=== PATIENT | male | born 1980 | race Caucasian/White ===

== ENCOUNTER 2023-11-12 15:52 | Inpatient (IN) | payer OTHER, SELFPAY ==
--- NOTE | 2023-11-12 | ECG_ITS ---
Test Reason : DETOX Blood Pressure : / mmHG Vent. Rate : 083 BPM Atrial Rate : 083 BPM P-R Int : 138 ms QRS Dur : 078 ms QT Int : 368 ms P-R-T Axes : 000 005 023 degrees QTc Int : 432 ms Normal sinus rhythm Normal ECG No previous ECGs available Referred By: Generic ED Physician Electronically Signed By:DWAYNE AGUILA
--- NOTE | ~2023-11-12 | XR_ITS ---
EXAMINATION: XR LUMBOSACRAL SPINE CLINICAL INFORMATION: Back pain COMPARISON: None available. TECHNIQUE: Three views of the lumbosacral spine. FINDINGS: No acute abnormalities. At L1-L2, there is chronic loss of the disc height. There is chronic anterior wedge deformity of the L1 vertebral body resulting in approximately 30% anterior height loss. No acute compression fractures. No evidence of pars interarticularis defects. The disc spaces are well-preserved at L2-L3, L3-L4, L4-5 and L5-S1. The vertebral body alignment is maintained. Sacrum and sacroiliac joints are unremarkable. XR/XR lumbar spine 2-3V IMPRESSION: * No acute radiographic abnormalities in the lumbar spine. * There is an old anterior wedge compression deformity of the L1 vertebral body and there is chronic loss of height of the L1-L2 disc space.
[2023-11-12 16:07] VITALS: BP 118/73; PULSE 89; RESP 16; TEMP 36.6; O2SAT 93
[2023-11-12 16:11] VITALS: BP 132/84; PULSE 96; O2SAT 98; BMI 36.6
--- NOTE | 2023-11-12 16:12 | ED.GENADULT ---
HPI - General Adult General Chief complaint: ETOH/Substance Use Stated complaint: detox request Time Seen by Provider: 11/12/23 16:10 Source: patient and EMS Mode of arrival: EMS Limitations: no limitations History of Present Illness HPI narrative: Patient is a 43 year old assigned male at with a history of opiate use and alcohol use presenting to the emergency department today with suicidal ideation. Patient states that he has been feeling more depressed lately, has not had his suboxone for 6 days, and he has recently been using cocaine/PCP and drinking. Patient denies any dizziness, lightheadedness, abdominal pain, nausea, vomiting, fever, chills, blurry vision, double vision, loss of vision, chest pain, difficulty breathing, shortness of breath, back pain, night sweats, pain with urination, increased urinary frequency, increased urinary urgency, blood in his urine or stool, syncope or a near syncopal episode, recent trauma or falls, bowel incontinence, bladder incontinence, bowel retention, bladder retention, or any other complaints at this time. Relieving factors: none Exacerbating factors: none Associated symptoms: denies other symptoms Treatments prior to arrival: none Related Data Allergies Allergy/AdvReac Type Severity Reaction Status Date / Time amoxicillin Allergy Rash Verified 11/12/23 16:14 codeine Allergy Rash Verified 11/12/23 16:14 seafood Allergy Anaphylaxis Verified 11/12/23 16:14 Review of Systems Constitutional: Constitutional: Reports no additional constitutional complaints, Denies chills, Denies fever(s) and Denies night sweats Eyes: Eyes: Reports no additional eye complaints, Denies blurry vision, Denies change in vision, Denies diplopia, Denies eye discharge, Denies loss of vision and Denies eye pain ENT: Denies dizziness Cardiovascular: Cardiovascular: Reports no additional cardiovascular complaints, Denies chest pain, Denies lightheadedness, Denies Loss of Consciousness and Denies dyspnea Respiratory: Respiratory: Reports no additional respiratory complaints and Denies dyspnea Gastrointestinal: Gastrointestinal: Reports no additional gastrointestinal complaints, Denies abdominal pain, Denies melena, Denies hematochezia, Denies change in bowel habits and Denies change in stool character Genitourinary: Genitourinary: Reports no additional male genitourinary complaints, Denies hematuria, Denies oliguria, Denies difficulty urinating, Denies dysuria, Denies urinary frequency, Denies urinary hesitancy, Denies urinary incontinence and Denies urinary urgency Musculoskeletal: Musculoskeletal: Reports no additional musculoskeletal complaints, Denies numbness and Denies tingling Neurologic: Denies dizziness, Denies loss of vision, Denies numbness and Denies tingling Psychiatric: Psychiatric: Reports depression, Denies homicidal ideation and Reports suicidal ideation Endocrine: Endocrine: Reports no additional endocrine complaints Hematologic/Lymphatic: Hematologic/Lymphatic: Reports no additional hematologic/lymphatic complaints Allergic/Immunologic: Allergic/Immunologic: Reports no additional allergic/immunologic complaints [facility] Past Medical History Attestation statement: The following information was validated with the patient. Source: old records reviewed and nursing notes reviewed Social History Social History Unable to assess alcohol history related to: Refusing to respond Smoked in Last 30 Days: Yes Use of substances other than those prescribed or required for medical reasons: Refusing to respond Advance Directives: No Advance Directives Information Provided: No Do you have a plan to hurt others: No Plan Physical Exam ED Vital Signs: Vital Signs - 24 hr 11/12/23 16:07 Temperature 97.9 F Pulse Rate 89 Respiratory Rate 16 Blood Pressure 118/73 Pulse Oximetry 93 Oxygen Delivery Method Room Air BMI result Body Mass Index 36.6 Const General: cooperative, no acute distress, alert and awake Nutritional Appearance: well nourished Orientation/consciousness: patient oriented x3 Limitations: no limitations HENMT Head: Yes normal to inspection and Yes atraumatic Ears: hearing grossly normal bilaterally and external ears normal General nose exam: Normal external nose present, no nasal discharge noted and no epistaxis Face and sinus: Yes normal facial exam, No abrasion and No laceration Mouth: Normal oral and palatal mucosa present, no drooling and no muffled voice Eyes General: appearance normal, both eyes and all related structures Periorbital: periorbital findings normal Eyelids: Yes eyelids normal Conjunctivae: conjunctivae normal Pupils: Equal, round and reactive pupils present EOM: EOMs intact bilaterally Neck Neck: Yes normal visual inspection, Yes full ROM and Yes no lymphadenopathy Chest Chest palpation & inspection: normal inspection of the chest Resp Effort & Inspection: normal respiratory effort and able to speak in complete sentences GI Inspection: Yes normal to inspection Neuro General: patient oriented x3 and moves all extremities Cranial nerves: Yes Equal, round and reactive pupils present Cognition (Neuro): normal cognition Motor exam (neuro): 5/5 motor strength present throughout Sensory Exam: Normal double simultaneous stimulation for sensation Coordination: [id number] test normal Extrem General: Yes normal to inspection, Yes full ROM and Yes capillary refill normal Psych Appearance: grossly normal Mental Status: mental status grossly normal Affect: normal affect Attitude: cooperative Thought process: Normal thought process present Thought content: Normal thought content present Insight: Good insight present (Psych) Medical Decision Making Medical Decision Making MDM Narrative: Patient is a 43 year old assigned male at with a history of opiate use and alcohol use presenting to the emergency department today with suicidal ideation Patient's physical exam was as noted in the physical exam portion of this note. Patient's blood work was unremarkable. Patient's urine showed no acute process. Patient was positive for buprenorphine, fentanyl, barbiturates, PCP, benzos, cocaine, and THC. Patient was evaluated by the CARE team who recommended inpatient bed search. I explained my physical exam findings as well as all test results to the patient. I answered all questions asked by the patient. Patient verbalized agreement and understanding with this treatment plan and remaining an inpatient bed search. Physician observation began at 1628. Differential Diagnosis Differential Diagnoses: The differential diagnosis associated with the presentation includes Substance abuse Substance use Suicidal ideation Admission/Observation Consideration of admission/observation: Escalation of care including admission/observation considered Patient is an inpatient psychiatric bed search. Consult Healthcare Provider Management of the patient was discussed with: Behavioral Health Provider (spoke to the CARE team as noted in the MDM Rationale portion of this note.) Lab Data [facility] Lab Attestation statement: I reviewed the patient's lab results. My interpretation of these results are in the MDM Rationale portion of this note. 11/12/23 16:27 11/12/23 16:27 Labs: Lab Results 11/12/23 11/12/23 11/12/23 Range/Units 16:27 20:58 20:59 WBC 7.0 (4.8-10.8) X10*3/uL RBC 4.53 L (4.60-5.80) X10*6/uL Hgb 13.4 L (14.0-18.0) g/dl Hct 38.3 L (42.0-52.0) % MCV 84.5 (80.0-98.0) fL MCH 29.6 (27.0-33.0) pg MCHC 35.0 (31.0-36.0) g/dl RDW 13.4 (11.0-16.0) % Plt Count 245 (160-400) X10*3/uL MPV 10.5 (9.4-12.4) fL Immature Gran % (Auto) 0.1 (0.0-0.4) % Neut % (Auto) 55.9 (45-73) % Lymph % (Auto) 34.2 (20-40) % [place] % (Auto) 8.8 (2-11) % Eos % (Auto) 0.6 (0-4) % Baso % (Auto) 0.4 (0-2) % Lymph # (Auto) 2.4 (1.2-4.9) X10*3/uL [place] # (Auto) 0.6 (0.1-1.2) X10*3/uL Eos # (Auto) 0.0 (0.0-0.4) X10*3/uL Baso # (Auto) 0.0 (0.0-0.2) X10*3/uL Abs Immat Gran (auto) 0.01 (0.00-0.03) X10*3/uL Absolute Neuts (auto) 3.9 (2.0-8.3) x10*3/uL Absolute Nucleated RBC 0.000 (0.0-0.012) X10*3/uL Nucleated RBC % (auto) 0.0 (0.0-0.2) /100WBC Sodium 140 (135-145) mmol/L Potassium 3.4 (3.3-5.1) mmol/L Chloride 107 (96-108) mmol/L Carbon Dioxide 20 L (22-29) mmol/L Anion Gap 16 (12-20) BUN 25 H (9-16) mg/dL Creatinine 0.92 (0.5-1.4) mg/dL Estim Creat Clear Calc 134.4 Estimated GFR > 60 Random Glucose 89 (60-115) mg/dL Calcium 9.8 (8.4-10.2) mg/dL Total Bilirubin 0.6 (0.0-1.0) mg/dL AST 32 (5-37) U/L ALT 25 (0-40) U/L Alkaline Phosphatase 83 (39-117) U/L Troponin I High Sens < 2.7 (<3.5-35.0) ng/L Total Protein 7.9 (6.5-8.0) g/dL Albumin 4.6 (3.5-5.0) g/dL Urine Color Dark Yellow Urine Appearance Clear Urine pH 6.0 (5.0-9.0) Ur Specific [place] >= 1.030 H (1.005-1.025) Urine Protein 30 (1+) H (Neg-Trace) mg/dL Urine Glucose (UA) Negative (Negative) mg/dL Urine Ketones 40 (Negative) mg/dL Urine Blood Negative (Negative) Urine Nitrite Negative (Negative) Ur Leukocyte Esterase Negative (Negative) Urine RBC 0-2 (0-2) /HPF Urine WBC 0-5 (0-5) /HPF Ur Squamous Epith Cells 0-2 (0-2) /HPF Urine Bacteria None Seen (None Seen) Hyaline Casts 0-2 (0-2) /LPF Salicylates < 5.0 L (15-30) mg/dL Urine Opiates Screen Not Detected (Not Detect) Ur Buprenorphine Scrn Positive H (Not Detect) ng/mL Ur Oxycodone Screen Not Detected (Not Detect) ng/mL Urine Methadone Screen Not Detected (Not Detect) ng/mL Urine Fentanyl Screen POSITIVE H (Not Detect) Acetaminophen < 3 (<30) mcg/mL Ur Barbiturates Screen POSITIVE H (Not Detect) Ur Phencyclidine Scrn POSITIVE H (Not Detect) Ur Amphetamines Screen Not Detected (Not Detect) U Benzodiazepines Scrn POSITIVE H (Not Detect) Urine Cocaine Screen POSITIVE H (Not Detect) U Marijuana (THC) Screen POSITIVE H (Not Detect) Ethyl Alcohol < 10 mg/dL Independent Historian Clinical information obtained from an independent historian. History obtained from or confirmed by: EMS (EMS provided additional history and confirmed the history provided by the patient.) Critical Care Time Critical Care Time Critical Care Time: Yes Total Critical Care Time: 131 Attestation: I spent 131 minutes of Critical Care Time with this patient. This does not include time spent on separately reported billable procedures. Discharge Plan Discharge Clinical Impression: Polysubstance abuse, Suicidal ideation Patient Disposition: Still a Patient Print Language: Citizen Of [place]
[2023-11-12 16:31] LABS: MANUAL DIFF FLAG NO
[2023-11-12 16:34] LABS: Basophils Percent Auto 0.4 % (0-2); Eosinophils Percent Auto 0.6 % (0-4); Hematocrit 38.3 % (42.0-52.0); Hemoglobin 13.4 g/dl (14.0-18.0); Imm Gran Abs Auto 0.01 X10*3/uL (0.00-0.03); Imm Gran Pct Auto 0.1 % (0.0-0.4); Lymphocytes Absolute Auto 2.4 X10*3/uL (1.2-4.9); Lymphocytes Percent Auto 34.2 % (20-40); Mean Corpuscular Hemoglobin 29.6 pg (27.0-33.0); Mean Corpuscular Volume 84.5 fL (80.0-98.0); Mean Platelet Volume 10.5 fL (9.4-12.4); Monocytes Absolute Auto 0.6 X10*3/uL (0.1-1.2); Monocytes Percent Auto 8.8 % (2-11); Neutrophils Absolute Auto 3.9 x10*3/uL (2.0-8.3); Neutrophils Percent Auto 55.9 % (45-73); Platelet Count 245 X10*3/uL (160-400); Red Blood Count 4.53 X10*6/uL (4.60-5.80); Red Cell Distribution Width 13.4 % (11.0-16.0)
[2023-11-12 17:48] LABS: Alanine Aminotransferase 25 U/L (0-40); Albumin Level 4.6 g/dL (3.5-5.0); Alkaline Phosphatase 83 U/L (39-117); Anion Gap 16 (12-20); Aspartate Amino Transferase 32 U/L (5-37); Bilirubin Total 0.6 mg/dL (0.0-1.0); Blood Urea Nitrogen 25 mg/dL (9-16); Calcium 9.8 mg/dL (8.4-10.2); Carbon Dioxide 20 mmol/L (22-29); Chloride 107 mmol/L (96-108); Creatinine Clr Calc Pharmacy 134.4; Estimated Glomerular Filt Rate > 60; Glucose Random 89 mg/dL (60-115); Potassium 3.4 mmol/L (3.3-5.1); Sodium 140 mmol/L (135-145); Total Protein 7.9 g/dL (6.5-8.0)
[2023-11-12 17:50] LABS: Acetaminophen LAB < 3 mcg/mL (<30); Salicylate < 5.0 mg/dL (15-30)
[2023-11-12 17:58] LABS: Troponin-I High Sensitivity < 2.7 ng/L (<3.5-35.0)
[2023-11-12 19:55] LABS: Ethanol < 10 mg/dL
[2023-11-12 21:12] LABS: Appearance Urine Clear; Color Urine Dark Yellow; Glucose Urine UA Negative (Negative); Leukocyte Esterase Urine Negative (Negative); Nitrite Urine Negative (Negative); Specific Gravity - Urine >= 1.030 (1.005-1.025); UMIC TRIGGER UACC YES; Urine Blood Negative (Negative); Urine Ketones 40 mg/dL (Negative); Urine Protein 30 (1+) mg/dL (Neg-Trace)
[2023-11-12 21:14] LABS: Bacteria Urine None Seen (None Seen); Hyaline Casts Urine 0-2 /LPF (0-2); RBC Urine 0-2 /HPF (0-2); Squamous Epithelial Cell Urine 0-2 /HPF (0-2); WBC Urine 0-5 /HPF (0-5)
[2023-11-12 21:20] LABS: Amphetamine Screen Urine Not Detected (Not Detect); Barbiturates, Urine POSITIVE (Not Detect); Benzodiazepines Screen Urine POSITIVE (Not Detect); Buprenorphine Scr Positive (Not Detect); Cannabinoid Screen Urine POSITIVE (Not Detect); Cocaine Screen Urine POSITIVE (Not Detect); Fentanyl, urine POSITIVE (Not Detect); Methadone Screen, Urine Not Detected (Not Detect); Opiate Screen Urine Not Detected (Not Detect); Oxycodone Screen Urine Not Detected (Not Detect); Phencyclidine Screen Urine POSITIVE (Not Detect)
--- NOTE | 2023-11-13 06:26 | PC.NURSE ---
Patient slept through the night, no distress observed/reported, disposition per care team is section-12 inpatient bed search. med rec completed/currently not on any home medication, asymptomatic ETOH withdrawal at this time, no behavior issues, VSS, will continue to monitor
[2023-11-13 06:35] VITALS: BP 123/79; PULSE 58; RESP 17; TEMP 36.4; O2SAT 98
--- NOTE | 2023-11-13 07:02 | PC.NURSE ---
Assumed care of patient at 0645, patient awake sitting up in bed, offering no complaints to this RN. Patient requesting suboxone. Patient reports that he was discharged from [facility] 2 weeks ago, was supposed to get his medications refilled at [facility] or [facility] (per patient). He has not been able to get those medications refilled so he has been without medications for 2 weeks. Patient is otherwise in no apparent distress. Continue plan of care for inpt bedsearch
--- NOTE | 2023-11-13 08:47 | PC.NURSE ---
This RN found 2 pill bottles in patient belongings that are his daily medications. Entered in med rec. Attempted to verify suboxone dose with [facility] however, staff unsure of how to access old records so this RN was unable to verify. Jayde Jordan, molded frames assembler contacted regarding suboxone
[2023-11-13] MEDS: levETIRAcetam 500 MG TABLET PO ×2 (09:11→20:55)
[2023-11-13] MEDS: clonazePAM 1 MG TABLET PO ×2 (09:11→20:55)
--- NOTE | 2023-11-13 10:05 | MHC.RECOVRN ---
T/W received request from ER nurse Ondina Alcantara asking for assistance with suboxone verification. mass pat pulled and given to Ondina. Upon reveiw of Tox screen Precipitated W/D reviewed with nurse along with recommendations to treat with comfort meds until appropriate to re start suboxone. ACS available PRN.
--- NOTE | 2023-11-13 10:08 | PC.NURSE ---
Per Noe, patient received suboxone 20mg on 10/18 with a 30 day quanitity. patient has not taken it since being discharged from [facility]. Patient did test positive for Fentanyl, to avoid precipitated withdrawal, Suboxone should be held for at least 72 hours after testing positive or until the patient no longer tests positive for it.
[2023-11-13 13:42] VITALS: PULSE 45
[2023-11-13 13:50] VITALS: BP 120/79; PULSE 45; RESP 18; TEMP 36.9; O2SAT 97
--- NOTE | 2023-11-13 13:52 | PC.NURSE ---
Patient reporting withdrawal symptoms, CIWA and COWS both scored 6. [employer] aware. Patient's vital signs also reported to MD as heart rate was 45. No new orders at this time
[2023-11-13] MEDS: hydrOXYzine HCL 50 MG TABLET PO (14:46)
[2023-11-13] MEDS: Ibuprofen 600 MG TABLET PO (14:46)
[2023-11-13 20:07] VITALS: BP 114/60; PULSE 57; RESP 17; TEMP 36.6; O2SAT 98
[2023-11-13] MEDS: Gabapentin 400 MG CAPSULE 800 MG PO (21:09)
[2023-11-13] MEDS: Buprenorphine/Naloxone 8/2 mg FILM 1 FILM BUCCAL (21:09)
[2023-11-13 22:12] VITALS: BP 103/72; PULSE 66; RESP 18; TEMP 36.6; O2SAT 97
[2023-11-14 06:42] VITALS: BP 105/67; PULSE 56; RESP 17; TEMP 36.6; O2SAT 96
--- NOTE | 2023-11-14 06:56 | PC.NURSE ---
Patient slept through the night, no distress observed/reported, no behavior issues, deposition per care team is section-12 inpatient bed search, medication compliant, VSS, will continue to monitor
--- NOTE | 2023-11-14 07:59 | PC.NURSE ---
Assumed care of patient at 0645, patient sleeping on bed in BH 4, respirations even and unlabored, no apparent distress. Continue plan of care for inpatient bedsearch
[2023-11-14] MEDS: clonazePAM 1 MG TABLET PO ×3 (08:09→20:27)
[2023-11-14] MEDS: levETIRAcetam 500 MG TABLET PO ×2 (08:09→20:27)
[2023-11-14] MEDS: Gabapentin 400 MG CAPSULE 800 MG PO ×3 (08:09→20:27)
[2023-11-14] MEDS: Buprenorphine/Naloxone 8/2 mg FILM 1 FILM BUCCAL ×3 (08:09→20:27)
[2023-11-14 16:01] VITALS: BP 113/74; PULSE 59; RESP 18; TEMP 36.5; O2SAT 98
[2023-11-14 16:04] VITALS: PULSE 59
--- NOTE | 2023-11-14 19:17 | PC.NURSE ---
patient appears to remain at rest at present respirations are even and unlabored, resting in room. patient appears in no distress.
[2023-11-15 03:18] VITALS: BP 103/71; PULSE 64; RESP 17; TEMP 36.6; O2SAT 93
--- NOTE | 2023-11-15 07:29 | PC.NURSE ---
Assumed care of patient at 0645, patient appears to be sleeping, respirations even and unlabored, no apparent distress noted at this time. Patient remains S12 inpatient bedsearch
[2023-11-15] MEDS: clonazePAM 1 MG TABLET PO ×3 (08:00→20:22)
[2023-11-15] MEDS: Buprenorphine/Naloxone 8/2 mg FILM 1 FILM BUCCAL ×3 (08:00→20:22)
[2023-11-15] MEDS: levETIRAcetam 500 MG TABLET PO ×2 (08:00→20:22)
[2023-11-15] MEDS: Gabapentin 400 MG CAPSULE 800 MG PO ×3 (08:00→20:21)
[2023-11-15 09:20] VITALS: BP 119/64; PULSE 60; RESP 16; TEMP 36.9; O2SAT 95
[2023-11-15] MEDS: OLANZapine 5 MG TABLET PO (13:27)
[2023-11-15 15:00] VITALS: BP 136/82; PULSE 88; RESP 16; TEMP 36.6; O2SAT 96
[2023-11-15] MEDS: chlordiazePOXIDE HCl 25 MG CAPSULE PO ×2 (16:26→20:22)
--- NOTE | 2023-11-15 18:03 | PC.ADMIT ---
Chauncey Lucio , he/him pronouns arrived via wheelchair from [facility]. He is being admitted for bipolar II disorder and substance use disorder. He is here on a 12A. Dr Kraft was notified of his arrival on the unit. He was cooperative with safety/skin check. Naveed is an undomiciled male who presented to the ED secondary to suicidal ideation with a plan to overdose. Naveed reported using cocaine and PCP early in the date of admission along with drinking 2 pints of alcohol. I drink the tall boy beers and add a shot or 2 to it . He is originally from [place]. He previously spent 6 weeks at [facility], he then headed to a [facility] facility on [address] , upon his arrival he was confronted for smoking and decided then to leave the program. He has been living on the street for 2 weeks since. He has been without his medications and his suboxone for that time as well. He has been using illicit substances and alcohol daily since. He endorses significant anxiety and depression. He said a previous suicide attempt in 2018 was related to the of his mom. I just couldnt get away from the sadness . In 2019, his of 5 years was murdered in [place] , I am the one that found her, she had been stabbed , he has one child who is 7, but lives with his wifes family as his family has either or estranged from him. I have been living wild and dangerous , he desires help to get his mental health and substances use disorder under control. He reports feeling safe here and denies urges to harm self or others. He has a few medical problems as well. He has a seizure disorder since 2013 I used to shoot coke all the time , he has asthma, and osteomylitis of the spine. He reports he has had etoh withdrawal seizures in the past. Currently, when the ciwa was assessed by this typewriter assembly and parts inspector, he scored a 15. Dr Kraft aware. Orders received and followed. He is a half pack a day smoker and or vape user. He is requesting NRT during hospitalization. He is on 15 minute safety checks. He met with Dr Kraft and signed the CV which was accepted by
[2023-11-15 20:00] VITALS: BP 131/73; PULSE 55; RESP 16; TEMP 36.5; O2SAT 98
[2023-11-15] MEDS: traZODone HCL 50 MG TABLET PO (20:22)
[2023-11-16] MEDS: hydrOXYzine HCL 25 MG TABLET PO (06:39)
[2023-11-16 08:20] VITALS: BP 124/67; PULSE 61; RESP 16; TEMP 36.8; O2SAT 95
[2023-11-16] MEDS: Thiamine HCL 100 MG TABLET PO (08:31)
[2023-11-16] MEDS: Gabapentin 400 MG CAPSULE 800 MG PO ×3 (08:31→21:46)
[2023-11-16] MEDS: chlordiazePOXIDE HCl 25 MG CAPSULE PO ×4 (08:31→21:47)
[2023-11-16] MEDS: Folic Acid 1 MG TABLET PO (08:31)
[2023-11-16] MEDS: clonazePAM 1 MG TABLET PO ×3 (08:32→21:48)
[2023-11-16] MEDS: levETIRAcetam 500 MG TABLET PO ×2 (08:32→21:47)
[2023-11-16] MEDS: Buprenorphine/Naloxone 8/2 mg FILM 1 FILM BUCCAL ×3 (08:51→21:51)
[2023-11-16] MEDS: Nicotine Polacrilex 2 MG GUM 4 MG BUCCAL (09:26)
--- NOTE | 2023-11-16 09:38 | HO.PSYADMNOT ---
HPI Date of Service: 11/16/23 Chief Complaint: depressed/SI Sources of Information: patient interviewed, chart reviewed and crisis/core team assessment reviewed HPI Subjective Notes: Graham Warning and Conditional Voluntary Narrative: Patient is a 43-year-old male with history of epilepsy, PTSD, depression alcohol and cocaine abuse, who presents for depression and SI in the face of being off his medications for a week and a half and relapsing on alcohol and cocaine. Patient reports long history of depression which significantly worsened after he found his murdered 4 years ago. Since then his PTSD symptoms became unrelenting and depression worsened. Patient continue the struggled with alcohol and cocaine dependence. For the past few months he has either been at a program and more recently discharged from [facility] psych unit where some of his medications were changed. He went to a partial day program and afterwards was sent to a TSS in [facility]; upon arrival patient felt very uncomfortable, did not know the area at all, was not allowed to smoke at the program and had his SSI check coming in which was a trigger for relapse and patient left the program. For the past week and a half he was drinking heavily and using cocaine heavily and for the 1st time tried PCP. His depression worsened and he started having suicidal thoughts, planning to overdose. He said he can still hear his whispering to him that he can do it and to stay safe. Patient reports that over the past year his depression has significantly worried and is now accompanied by SI, sometimes even with plans. He denies AVH; denies any history of manic type episodes; no paranoid or delusional thinking present. Past Psychiatric History: History of 2 prior psychiatric admissions 1st in 2017 2018 suicide attempt Medication trials: Seroquel 200 mg b.i.d., thinks maybe it helped Zyprexa 7.5 mg t.i.d. thinks maybe it helped Effexor Prozac Medical Evaluation Reviewed: Yes [facility] Medical History (Updated 11/16/23 @ 18:03 by Humble Kraft MD) Cocaine use disorder Alcohol withdrawal Alcohol use disorder PTSD (post-traumatic stress disorder) MDD (major depressive disorder), recurrent severe, without psychosis Family History: Father: Alcoholism Social History: Homeless murdered 4 in 2019 Both mother and father Patient estranged from his brothers and sisters Patient estranged from his 7 children Substance History: cocaine; PCP hx alcohol w/drawal seizures, usually detoxed on Phenobarb, but sometimes Librium Trauma History: Childhood trauma Adult trauma including finding his murdered Diagnostics Vital Signs (24Hr): Vital Signs - 24 hr 11/15/23 15:00 11/15/23 20:00 Temperature 97.8 F 97.7 F Pulse Rate 88 55 Respiratory Rate 16 16 Blood Pressure 136/82 131/73 Pulse Oximetry 96 98 Oxygen Delivery Method Room Air Room Air BMI result Body Mass Index 36.6 Labs 11/12/23 16:27 11/12/23 16:27 Meds/Allergies Meds Home Medications ?Medication ?Instructions ?Recorded ?Confirmed ?Type buprenorphine 8 mg-naloxone 2 mg 2.5 film buccal DAILY 11/13/23 11/16/23 History sublingual film (Suboxone) gabapentin 800 mg tablet 800 mg PO TID 11/13/23 11/13/23 History levetiracetam 500 mg tablet 500 mg PO BID 11/13/23 11/13/23 History (Keppra) albuterol 90 mcg/actuation aerosol See Rx Instructions .Route 11/16/23 History inhaler .COMPLEX PRN wheezing buspirone 10 mg tablet 10 mg PO TID 11/16/23 11/16/23 History olanzapine 7.5 mg tablet 7.5 mg PO 3XD PRN Anxiety 11/16/23 11/16/23 History prazosin 2 mg capsule 2 mg PO BEDTIME 11/16/23 11/16/23 History propranolol 20 mg tablet 20 mg PO TID 11/16/23 11/16/23 History sertraline 50 mg tablet 50 mg PO DAILY 11/16/23 11/16/23 History trazodone 150 mg tablet 150 mg PO BEDTIME 11/16/23 11/16/23 History Allergies Allergies Allergy/AdvReac Type Severity Reaction Status Date / Time amoxicillin Allergy Rash Verified 11/12/23 16:14 codeine Allergy Rash Verified 11/12/23 16:14 seafood Allergy Anaphylaxis Verified 11/12/23 16:14 Mental Status Exam Mental Status Exam Narrative: Pt is alert and oriented; behavior is cooperative, friendly and calm; patient is not in distress; dressed in hospital attire, unkempt long hair and scraggly moses; marginal hygiene; mood is described as depressed and affect congruent, downcast; eye contact appropriate; Speech is a little slowed, a little soft; normal prosody; psychomotor agitation present; thought process is organized and goal directed; Thought content is on hopelessness, images of his murdered , tx; otherwise pertinent to relevant topics and without any delusional content, paranoid ideations or grandiosity; denies any SI/HI. There is no evidence of perceptual disturbance and denies AVH. Patients insight and judgment impaired Assessment & Plan Assessment & Plan (1) MDD (major depressive disorder), recurrent severe, without psychosis: Status: Acute Code(s): F33.2 - Major depressive disorder, recurrent severe without psychotic features (2) PTSD (post-traumatic stress disorder): Status: Acute Code(s): F43.10 - Post-traumatic stress disorder, unspecified (3) Alcohol withdrawal: Status: Acute Code(s): F10.939 - Alcohol use, unspecified with withdrawal, unspecified (4) Alcohol use disorder: Status: Acute Code(s): F10.90 - Alcohol use, unspecified, uncomplicated (5) Cocaine use disorder: Status: Acute Code(s): F14.10 - Cocaine abuse, uncomplicated Plan Patient is a 43-year-old male with history of epilepsy, PTSD, depression alcohol and cocaine abuse, who presents for depression and SI in the face of being off his medications for a week and a half and relapsing on alcohol and cocaine. Patient reports long history of depression which significantly worsened after he found his murdered 4 years ago. Since then his PTSD symptoms became unrelenting and depression worsened. Patient continue the struggled with alcohol and cocaine dependence. For the past few months he has either been at a program and more recently discharged from [facility] psych unit where some of his medications were changed. He went to a partial day program and afterwards was sent to a TSS in [facility]; upon arrival patient felt very uncomfortable, did not know the area at all, was not allowed to smoke at the program and had his SSI check coming in which was a trigger for relapse and patient left the program. For the past week and a half he was drinking heavily and using cocaine heavily and for the 1st time tried PCP. His depression worsened and he started having suicidal thoughts, planning to overdose. He said he can still hear his whispering to him that he can do it and to stay safe. Patient reports that over the past year his depression has significantly worried and is now accompanied by SI, sometimes even with plans. He denies AVH; denies any history of manic type episodes; no paranoid or delusional thinking present. Formulation/plan: -Patient with severe depression and PTSD symptoms, complicated by ongoing polysubstance abuse; currently withdrawing from alcohol. Patient is normally detoxed on a phenobarbital taper and has history of withdrawal seizures, with epilepsy diagnosis so will aggressively treat withdrawal with scheduled Librium and CIWA/p.r.n. Librium. -regarding medication, due to history of substance abuse it has a little difficult to determine exactly what medications have been helpful; he thinks that Seroquel 200 mg b.i.d. was helpful at 1 point and does not know why he was taken off of it; he also said that olanzapine scheduled seem to be helpful and was not sure why last hospitalization changed to a p.r.n.. That said, these were also seemingly helpful while he was also getting sober. Will continue to consider. Plan: CV Q 15 minute checks Librium scheduled with p.r.n.; will taper off Continue clonazepam 1 mg b.i.d.; started at last psychiatric hospitalization Continue gabapentin 800 mg t.i.d.; has been on for 10 years for both epilepsy and neuropathic pain Keppra 500 mg b.i.d.; on for 10 years for epilepsy Patient educated on: diagnosis, medication risk/benefits, substance abuse and medical condition Informed Consent: understands Reason for continued inpatient stay Substantial Risk for: harm to self and rapid decompensation Statement Statement: I have reviewed the history and physical and performed a pertinent examination on my patient. No changes have occurred unless specified. If the History and Physical was not performed prior to admission, the Hospitalist's service will be consulted for completing the admission physical. Time Spent With Patient Time: Total time managing care of this patient today ____ minutes.
[2023-11-16] MEDS: Nicotine 21 MG PATCH.TD24 TRANSDERMA (11:44)
[2023-11-16 15:03] VITALS: BP 147/88
[2023-11-16] MEDS: busPIRone HCl 10 MG TABLET PO ×2 (15:03→21:48)
[2023-11-16] MEDS: Propranolol HCL 20 MG TABLET PO ×2 (15:03→21:47)
[2023-11-16 20:00] VITALS: BP 136/74; PULSE 67; RESP 16; TEMP 36.7; O2SAT 94
[2023-11-16 21:47] VITALS: BP 136/74; PULSE 67
[2023-11-16] MEDS: traZODone HCL 100 MG TABLET 200 MG PO (21:47)
[2023-11-16] MEDS: Prazosin HCL 1 MG CAPSULE 2 MG PO (21:47)
[2023-11-17] MEDS: chlordiazePOXIDE HCl 25 MG CAPSULE 50 MG PO (06:26)
[2023-11-17 08:00] VITALS: BP 106/68; PULSE 60; RESP 18; O2SAT 95
[2023-11-17 08:46] VITALS: BP 106/68; PULSE 60
[2023-11-17] MEDS: Thiamine HCL 100 MG TABLET PO (08:46)
[2023-11-17] MEDS: Propranolol HCL 20 MG TABLET PO ×2 (08:46→21:43)
[2023-11-17] MEDS: Gabapentin 400 MG CAPSULE 800 MG PO ×3 (08:46→21:44)
[2023-11-17] MEDS: busPIRone HCl 10 MG TABLET PO ×3 (08:46→21:44)
[2023-11-17] MEDS: levETIRAcetam 500 MG TABLET PO ×2 (08:46→21:44)
[2023-11-17] MEDS: chlordiazePOXIDE HCl 25 MG CAPSULE PO ×4 (08:47→21:46)
[2023-11-17] MEDS: Folic Acid 1 MG TABLET PO (08:47)
[2023-11-17] MEDS: clonazePAM 1 MG TABLET PO ×2 (08:47→21:44)
[2023-11-17] MEDS: Buprenorphine/Naloxone 8/2 mg FILM 1 FILM BUCCAL ×3 (08:49→21:45)
[2023-11-17] MEDS: Nicotine 21 MG PATCH.TD24 TRANSDERMA (09:15)
[2023-11-17 13:33] VITALS: BP 118/58; PULSE 62; RESP 16; TEMP 36.2; O2SAT 98
[2023-11-17 14:04] VITALS: BP 118/58
--- NOTE | 2023-11-17 14:20 | MHC.RECOVRN ---
Met with pt on M5 after consult placed to Addiction Medicine for polysubstance use. Pt had presented to the ED verbalizing SI with plan to overdose. Upon evaluation, pt admitted for YU as well as PTSD and MDD. Pt awake, alert, easily engages in conversation. Pt reports being in and out of programs frequently, most recently had been accepted to [facility] however, when pt presented there he was told he could not smoke cigarettes and turned around and left. Pt has been using substances since, approx 3 weeks. Pt is from [place], was brought out here to go to [place]. Pt reports he has been using cocaine, INH, 14 grams daily x 3 weeks as well as PCP, INH, x 6 days. Pt reports he began using PCP for the first time, had not done it in the past. Pt reports he is in recovery from heroin/fentanyl x 9 months, utilizing Suboxone. Pt reports cravings for opioids is low. Pt reports, however, a couple days ago using Percocet. Pt did later discover it was a pressed fentanyl tablet. Pt reports if he had not come to [facility] he would overdose and out there. Pt is future oriented and goal is recovery. Pt would like to be be placed in a CSS from . Pt provided with written resources as well as t/w contact information if needed. Pt encouraged to speak with SW regarding referrals to CSS. Pt denies questions or concerns for t/w.
[2023-11-17] MEDS: Acetaminophen 325 MG TABLET 650 MG PO (17:05)
--- NOTE | 2023-11-17 17:46 | P.PNPSI_ITS ---
Subjective Subjective Date of Service: 11/17/23 Reason For Visit: depressed/SI Interim History: Met with patient; discussed with team Patient has been with detoxing without incident; he thinks that because this recent binge was only 1.5 weeks long his withdrawal is much more mild than usual. Will start to taper off Librium. Patient remains depressed, isolating and with downcast affect. Discussed medications again and patient agreed to restart Seroquel 200 mg b.i.d. since to his recollection this is what helped his mood the most. Patient also complaining of mid back pain where he had recent osteomyelitis infection and the pain feels similar. Mental Status Exam Mental Status Exam Narrative: Pt is alert and oriented; behavior is cooperative, friendly and calm; patient is not in distress; dressed in hospital attire, unkempt long hair and scraggly moses; marginal hygiene; mood is described as depressed and affect congruent, downcast; eye contact appropriate; Speech is a little slowed, a little soft; normal prosody; psychomotor agitation present; thought process is organized and goal directed; Thought content is on hopelessness, images of his murdered , tx; otherwise pertinent to relevant topics and without any delusional content, paranoid ideations or grandiosity; denies any SI/HI. There is no evidence of perceptual disturbance and denies AVH. Patients insight and judgment impaired Diagnostics Vital Signs (24Hr): Vital Signs - 24 hr 11/16/23 20:00 11/16/23 21:47 11/16/23 21:47 Temperature 98.0 F Pulse Rate 67 67 Respiratory Rate 16 Blood Pressure 136/74 136/74 136/74 Pulse Oximetry 94 Oxygen Delivery Method Room Air 11/17/23 08:00 11/17/23 08:46 11/17/23 13:33 Temperature 97.1 F Pulse Rate 60 60 62 Respiratory Rate 18 16 Blood Pressure 106/68 106/68 118/58 L Pulse Oximetry 95 98 Oxygen Delivery Method Room Air Room Air 11/17/23 14:04 Temperature Pulse Rate Respiratory Rate Blood Pressure 118/58 L Pulse Oximetry Oxygen Delivery Method BMI result Body Mass Index 36.6 Labs 11/12/23 16:27 11/12/23 16:27 Medications Medications Current Medications Acetaminophen (Acetaminophen 325 Mg Tablet) 650 mg PO Q6H PRN PRN Reason: Headache/Pain Mild Scale (1-3) Last Admin: 05/08/24 17:05 Dose: 650 mg Al Hydroxide/Mg Hydroxide (Magnesium Hydrox/Alum Hydrox 30 Ml Oral.Susp) 30 ml PO Q6H PRN PRN Reason: Heartburn/Nausea Albuterol Sulfate (Albuterol Sulfate 90 Mcg 8 Gm Inhaler) 4 puff INHALE Q2H PRN PRN Reason: Shortness of Breath Buprenorphine/Naloxone (Buprenorphine/Naloxone 8/2 Mg Film) 1 film BUCCAL TID [facility] Last Admin: 11/17/23 14:05 Dose: 1 film Buspirone HCl (Buspirone Hcl 10 Mg Tablet) 10 mg PO TID [facility] Last Admin: 11/17/23 14:05 Dose: 10 mg Chlordiazepoxide HCl (Chlordiazepoxide Hcl 25 Mg Capsule) 25 mg PO Q2H PRN PRN Reason: CIWA 7-10 Chlordiazepoxide HCl (Chlordiazepoxide Hcl 25 Mg Capsule) 50 mg PO Q2H PRN PRN Reason: CIWA 11 and above Last Admin: 11/17/23 06:26 Dose: 50 mg Chlordiazepoxide HCl (Chlordiazepoxide Hcl 25 Mg Capsule) 25 mg PO TID [facility] Clonazepam (Clonazepam 1 Mg Tablet) 1 mg PO BID [facility] Last Admin: 11/17/23 08:47 Dose: 1 mg Famotidine (Famotidine 20 Mg Tablet) 20 mg PO BID [facility] Famotidine (Famotidine 20 Mg Tablet) 20 mg PO ONCE ONE Stop: 11/17/23 17:45 Folic Acid (Folic Acid 1 Mg Tablet) 1 mg PO DAILY [facility] Last Admin: 11/17/23 08:47 Dose: 1 mg Gabapentin (Gabapentin 400 Mg Capsule) 800 mg PO TID [facility] Last Admin: 11/17/23 14:05 Dose: 800 mg Hydroxyzine HCl (Hydroxyzine Hcl 25 Mg Tablet) 25 mg PO Q6H PRN PRN Reason: Anxiety Last Admin: 11/16/23 06:39 Dose: 25 mg Levetiracetam (Levetiracetam 500 Mg Tablet) 500 mg PO BID [facility] Last Admin: 11/17/23 08:46 Dose: 500 mg Magnesium Hydroxide (Milk Of Magnesia 30 Ml Oral.Susp) 30 ml PO DAILY PRN PRN Reason: Constipation Nicotine (Nicotine 21 Mg Patch.Td24) 21 mg TRANSDERMA DAILY PRN PRN Reason: smoking cessation Last Admin: 11/17/23 09:15 Dose: 21 mg Nicotine Polacrilex (Nicotine Polacrilex 2 Mg Gum) 4 mg BUCCAL Q2H PRN PRN Reason: Nicotine Cravings Last Admin: 11/16/23 09:26 Dose: 4 mg Olanzapine (Olanzapine 7.5 Mg Tablet) 7.5 mg PO TID PRN PRN Reason: Anxiety Prazosin HCl (Prazosin Hcl 1 Mg Capsule) 2 mg PO BEDTIME [facility]; Protocol Last Admin: 11/16/23 21:47 Dose: 2 mg Propranolol HCl (Propranolol Hcl 20 Mg Tablet) 20 mg PO TID [facility]NY; Protocol Last Admin: 11/17/23 14:04 Dose: Not Given Quetiapine Fumarate (Quetiapine Fumarate 200 Mg Tablet) 200 mg PO BID [facility] Thiamine HCl (Thiamine Hcl 100 Mg Tablet) 100 mg PO DAILY [facility] Last Admin: 11/17/23 08:46 Dose: 100 mg Trazodone HCl (Trazodone Hcl 100 Mg Tablet) 200 mg PO BEDTIME [facility] Last Admin: 11/16/23 21:47 Dose: 200 mg Allergies Allergies Allergy/AdvReac Type Severity Reaction Status Date / Time amoxicillin Allergy Rash Verified 11/12/23 16:14 codeine Allergy Rash Verified 11/12/23 16:14 seafood Allergy Anaphylaxis Verified 11/12/23 16:14 Assessment & Plan Assessment & Plan (1) MDD (major depressive disorder), recurrent severe, without psychosis: Status: Acute Code(s): F33.2 - Major depressive disorder, recurrent severe without psychotic features (2) PTSD (post-traumatic stress disorder): Status: Acute Code(s): F43.10 - Post-traumatic stress disorder, unspecified (3) Alcohol withdrawal: Status: Acute Code(s): F10.939 - Alcohol use, unspecified with withdrawal, unspecified (4) Alcohol use disorder: Status: Acute Code(s): F10.90 - Alcohol use, unspecified, uncomplicated (5) Cocaine use disorder: Status: Acute Code(s): F14.10 - Cocaine abuse, uncomplicated Plan HPI: Patient is a 43-year-old male with history of epilepsy, PTSD, depression alcohol and cocaine abuse, vertebral Osteomylitis, who presents for depression and SI in the face of being off his medications for a week and a half and relapsing on alcohol and cocaine. Patient reports long history of depression which significantly worsened after he found his murdered 4 years ago. Since then his PTSD symptoms became unrelenting and depression worsened. Patient continue the struggled with alcohol and cocaine dependence. For the past few months he has either been at a program and more recently discharged from [facility] unit where some of his medications were changed. He went to a partial day program and afterwards was sent to a [facility] in [facility]; upon arrival patient felt very uncomfortable, did not know the area at all, was not allowed to smoke at the program and had his SSI check coming in which was a trigger for relapse and patient left the program. For the past week and a half he was drinking heavily and using cocaine heavily and for the 1st time tried PCP. His depression worsened and he started having suicidal thoughts, planning to overdose. He said he can still hear his whispering to him that he can do it and to stay safe. Patient reports that over the past year his depression has significantly worried and is now accompanied by SI, sometimes even with plans. He denies AVH; denies any history of manic type episodes; no paranoid or delusional thinking present. Formulation/plan: -Patient with severe depression and PTSD symptoms, complicated by ongoing polysubstance abuse; currently withdrawing from alcohol. Patient is normally detoxed on a phenobarbital taper and has history of withdrawal seizures, with epilepsy diagnosis so will aggressively treat withdrawal with scheduled Librium and CIWA/p.r.n. Librium. -regarding medication, due to history of substance abuse it has a little difficult to determine exactly what medications have been helpful; he thinks that Seroquel 200 mg b.i.d. was helpful at 1 point and does not know why he was taken off of it; he also said that olanzapine scheduled seem to be helpful and was not sure why last hospitalization changed to a p.r.n.. That said, these were also seemingly helpful while he was also getting sober. Will continue to consider. -regarding diagnosis and does not seem that patient has had any distinct manic episodes but rather mood fluctuates by hours or by a day or so due to situational triggers. That said, his recollection antipsychotic medications, Zyprexa and Seroquel both seem to help with his mood. He was briefly started on Latuda at [facility] but barely took it. Has a history of being on lithium but can not really remember if it was helpful Hospital course: 11/16 Patient has been with detoxing without incident; he thinks that because this recent binge was only 1.5 weeks long his withdrawal is much more mild than usual. Will start to taper off Librium. Patient remains depressed, isolating and with downcast affect. Discussed medications again and patient agreed to restart Seroquel 200 mg b.i.d. since to his recollection this is what helped his mood the most. Patient also complaining of mid back pain where he had recent osteomyelitis infection and the pain feels similar. -will monitor for back pain and consider ID consult Plan: CV Q 15 minute checks Start Seroquel 200 mg b.i.d.; patient said this seemed to have helped depression before Start Librium taper; will likely discontinue CIWA soon Continue clonazepam 1 mg b.i.d.; started at last psychiatric hospitalization Continue gabapentin 800 mg t.i.d.; has been on for 10 years for both epilepsy and neuropathic pain Keppra 500 mg b.i.d.; on for 10 years for epilepsy Patient educated on: diagnosis, medication risk/benefits, substance abuse and medical condition Informed Consent: understands Reason for continued inpatient stay Substantial Risk for: rapid decompensation Time Spent With Patient Time: Total time managing care of this patient today ____ minutes.
[2023-11-17] MEDS: Famotidine 20 MG TABLET PO (18:05)
[2023-11-17 20:00] VITALS: BP 119/58; PULSE 57; RESP 18; TEMP 36.7; O2SAT 95
[2023-11-17] MEDS: Prazosin HCL 1 MG CAPSULE 2 MG PO (21:43)
[2023-11-17] MEDS: traZODone HCL 100 MG TABLET 200 MG PO (21:44)
[2023-11-17] MEDS: QUEtiapine Fumarate 200 MG TABLET PO (21:44)
[2023-11-18 08:19] VITALS: BP 126/78; PULSE 60; RESP 16; TEMP 36.6; O2SAT 96
[2023-11-18] MEDS: chlordiazePOXIDE HCl 25 MG CAPSULE PO (08:21)
[2023-11-18] MEDS: QUEtiapine Fumarate 200 MG TABLET PO ×2 (08:21→21:01)
[2023-11-18] MEDS: Gabapentin 400 MG CAPSULE 800 MG PO ×3 (08:21→21:01)
[2023-11-18] MEDS: busPIRone HCl 10 MG TABLET PO ×3 (08:21→21:01)
[2023-11-18] MEDS: Folic Acid 1 MG TABLET PO (08:21)
[2023-11-18] MEDS: Buprenorphine/Naloxone 8/2 mg FILM 1 FILM BUCCAL ×3 (08:21→21:00)
[2023-11-18 08:22] VITALS: BP 126/78; PULSE 60
[2023-11-18] MEDS: Propranolol HCL 20 MG TABLET PO ×3 (08:22→21:01)
[2023-11-18] MEDS: levETIRAcetam 500 MG TABLET PO ×2 (08:22→21:01)
[2023-11-18] MEDS: Famotidine 20 MG TABLET PO ×2 (08:22→21:01)
[2023-11-18] MEDS: clonazePAM 1 MG TABLET PO ×2 (08:22→21:01)
[2023-11-18] MEDS: Thiamine HCL 100 MG TABLET PO (08:22)
--- NOTE | 2023-11-18 12:35 | P.PNPSI_ITS ---
Subjective Subjective Date of Service: 11/18/23 Reason For Visit: depressed/SI Interim History: Met with patient; discussed with team Patient much more irritable today. Was upset that 1 of the nurses thought he might be overly sedated and wanted to ask provider whether not to administer certain medication. Patient said that he feels her purposely being difficult with him and that there should be no discussion about his medication except with his doctor. Orientor tried to explain the nurses perspective and that it is very common and expected that if a nurse has any concerns it would check with the provider; patient seem to accept this explanation. He said the only reason he was sedated this morning was because he has not been on Seroquel for while and got a higher dose of trazodone than he probably needed; also that he is on Librium. Orientor agree that these were likely the causes. Patient asked for Seroquel to remain 200 mg b.i.d. but to lower trazodone to which marine underwriter agreed. Other than being irritable he feels his mood is little better and is without any SI. Patient also complains of mid back pain which he says has been increasing over the past couple weeks and he is worried that he is getting a reinfection. During the day patient got very agitated when asked to not eat in a certain group room; he threw 1 of his milk cartons staff and made a verbal threat, which multiple staff overheard. Code assist called. Patient denied making the threat and said he only rolled the milk on the ground towards the staff but never threw. He said feels singled out by a nurse, being talk to like a child. Patient calmed down. Orientor discussed that it seems he has been misinterpreting staff's interactions and getting dysregulated from it; he nodded. Patient said he will stay calm. Mental Status Exam Mental Status Exam Narrative: Pt is alert and oriented; behavior is irritable much of the day and later on got very agitated and threatening; patient is not in distress; dressed in hospital attire, unkempt long hair and scraggly moses; marginal hygiene; mood is described as angry and affect congruent, constricted; eye contact appropriate; Speech is regular rate, volume and prosody; psychomotor agitation present; thought process is organized and goal directed; Thought content is on rules of the milieu, his own struggles images of his murdered , tx; otherwise pertinent to relevant topics and without any delusional content, paranoid ideations or grandiosity; denies any SI/HI. There is no evidence of perceptual disturbance and denies AVH. Patients insight and judgment impaired, but improved and likely at baseline Diagnostics Vital Signs (24Hr): Vital Signs - 24 hr 11/17/23 13:33 11/17/23 14:04 11/17/23 20:00 Temperature 97.1 F 98.1 F Pulse Rate 62 57 Respiratory Rate 16 18 Blood Pressure 118/58 L 118/58 L 119/58 L Pulse Oximetry 98 95 Oxygen Delivery Method Room Air 11/18/23 08:19 11/18/23 08:22 Temperature 97.8 F Pulse Rate 60 60 Respiratory Rate 16 Blood Pressure 126/78 126/78 Pulse Oximetry 96 Oxygen Delivery Method Room Air BMI result Body Mass Index 36.6 Labs 11/12/23 16:27 11/12/23 16:27 Medications Medications Current Medications Acetaminophen (Acetaminophen 325 Mg Tablet) 650 mg PO Q6H PRN PRN Reason: Headache/Pain Mild Scale (1-3) Last Admin: 11/17/23 17:05 Dose: 650 mg Al Hydroxide/Mg Hydroxide (Magnesium Hydrox/Alum Hydrox 30 Ml Oral.Susp) 30 ml PO Q6H PRN PRN Reason: Heartburn/Nausea Albuterol Sulfate (Albuterol Sulfate 90 Mcg 8 Gm Inhaler) 4 puff INHALE Q2H PRN PRN Reason: Shortness of Breath Buprenorphine/Naloxone (Buprenorphine/Naloxone 8/2 Mg Film) 1 film BUCCAL TID [facility] Last Admin: 11/18/23 08:21 Dose: 1 film Buspirone HCl (Buspirone Hcl 10 Mg Tablet) 10 mg PO TID [facility] Last Admin: 11/18/23 08:21 Dose: 10 mg Chlordiazepoxide HCl (Chlordiazepoxide Hcl 25 Mg Capsule) 25 mg PO TID [facility] Stop: 11/18/23 21:00 Last Admin: 11/18/23 08:21 Dose: 25 mg Chlordiazepoxide HCl (Chlordiazepoxide Hcl 25 Mg Capsule) 25 mg PO BID [facility] Clonazepam (Clonazepam 1 Mg Tablet) 1 mg PO BID [facility] Last Admin: 11/18/23 08:22 Dose: 1 mg Famotidine (Famotidine 20 Mg Tablet) 20 mg PO BID [facility] Last Admin: 11/18/23 08:22 Dose: 20 mg Folic Acid (Folic Acid 1 Mg Tablet) 1 mg PO DAILY [facility] Last Admin: 11/18/23 08:21 Dose: 1 mg Gabapentin (Gabapentin 400 Mg Capsule) 800 mg PO TID [facility] Last Admin: 11/18/23 08:21 Dose: 800 mg Hydroxyzine HCl (Hydroxyzine Hcl 25 Mg Tablet) 25 mg PO Q6H PRN PRN Reason: Anxiety Last Admin: 11/16/23 06:39 Dose: 25 mg Levetiracetam (Levetiracetam 500 Mg Tablet) 500 mg PO BID [facility] Last Admin: 11/18/23 08:22 Dose: 500 mg Magnesium Hydroxide (Milk Of Magnesia 30 Ml Oral.Susp) 30 ml PO DAILY PRN PRN Reason: Constipation Nicotine (Nicotine 21 Mg Patch.Td24) 21 mg TRANSDERMA DAILY PRN PRN Reason: smoking cessation Last Admin: 11/17/23 09:15 Dose: 21 mg Nicotine Polacrilex (Nicotine Polacrilex 2 Mg Gum) 4 mg BUCCAL Q2H PRN PRN Reason: Nicotine Cravings Last Admin: 11/16/23 09:26 Dose: 4 mg Olanzapine (Olanzapine 7.5 Mg Tablet) 7.5 mg PO TID PRN PRN Reason: Anxiety Prazosin HCl (Prazosin Hcl 1 Mg Capsule) 2 mg PO BEDTIME [facility]; Protocol Last Admin: 11/17/23 21:43 Dose: 2 mg Propranolol HCl (Propranolol Hcl 20 Mg Tablet) 20 mg PO TID [facility]; Protocol Last Admin: 11/18/23 08:22 Dose: 20 mg Quetiapine Fumarate (Quetiapine Fumarate 200 Mg Tablet) 200 mg PO BID [facility] Last Admin: 11/18/23 08:21 Dose: 200 mg Thiamine HCl (Thiamine Hcl 100 Mg Tablet) 100 mg PO DAILY [facility] Last Admin: 11/18/23 08:22 Dose: 100 mg Trazodone HCl (Trazodone Hcl 50 Mg Tablet) 150 mg PO BEDTIME [facility] Allergies Allergies Allergy/AdvReac Type Severity Reaction Status Date / Time amoxicillin Allergy Rash Verified 11/12/23 16:14 codeine Allergy Rash Verified 11/12/23 16:14 seafood Allergy Anaphylaxis Verified 11/12/23 16:14 Assessment & Plan Assessment & Plan (1) MDD (major depressive disorder), recurrent severe, without psychosis: Status: Acute Code(s): F33.2 - Major depressive disorder, recurrent severe without psychotic features (2) PTSD (post-traumatic stress disorder): Status: Acute Code(s): F43.10 - Post-traumatic stress disorder, unspecified (3) Alcohol withdrawal: Status: Acute Code(s): F10.939 - Alcohol use, unspecified with withdrawal, unspecified (4) Alcohol use disorder: Status: Acute Code(s): F10.90 - Alcohol use, unspecified, uncomplicated (5) Cocaine use disorder: Status: Acute Code(s): F14.10 - Cocaine abuse, uncomplicated Plan HPI: Patient is a 43-year-old male with history of epilepsy, PTSD, depression alcohol and cocaine abuse, vertebral Osteomylitis, who presents for depression and SI in the face of being off his medications for a week and a half and relapsing on alcohol and cocaine. Patient reports long history of depression which significantly worsened after he found his murdered 4 years ago. Since then his PTSD symptoms became unrelenting and depression worsened. Patient continue the struggled with alcohol and cocaine dependence. For the past few months he has either been at a program and more recently discharged from [facility] psych unit where some of his medications were changed. He went to a partial day program and afterwards was sent to a TSS in [facility]; upon arrival patient felt very uncomfortable, did not know the area at all, was not allowed to smoke at the program and had his SSI check coming in which was a trigger for relapse and patient left the program. For the past week and a half he was drinking heavily and using cocaine heavily and for the 1st time tried PCP. His depression worsened and he started having suicidal thoughts, planning to overdose. He said he can still hear his whispering to him that he can do it and to stay safe. Patient reports that over the past year his depression has significantly worried and is now accompanied by SI, sometimes even with plans. He denies AVH; denies any history of manic type episodes; no paranoid or delusional thinking present. Formulation/plan: -Patient with severe depression and PTSD symptoms, complicated by ongoing polysubstance abuse; currently withdrawing from alcohol. Patient is normally detoxed on a phenobarbital taper and has history of withdrawal seizures, with epilepsy diagnosis so will aggressively treat withdrawal with scheduled Librium and CIWA/p.r.n. Librium. -regarding medication, due to history of substance abuse it has a little difficult to determine exactly what medications have been helpful; he thinks that Seroquel 200 mg b.i.d. was helpful at 1 point and does not know why he was taken off of it; he also said that olanzapine scheduled seem to be helpful and was not sure why last hospitalization changed to a p.r.n.. That said, these were also seemingly helpful while he was also getting sober. Will continue to consider. -regarding diagnosis and does not seem that patient has had any distinct manic episodes but rather mood fluctuates by hours or by a day or so due to situational triggers. That said, his recollection antipsychotic medications, Zyprexa and Seroquel both seem to help with his mood. He was briefly started on Latuda at [facility] but barely took it. Has a history of being on lithium but can not really remember if it was helpful Hospital course: 11/16 Patient has been with detoxing without incident; he thinks that because this recent binge was only 1.5 weeks long his withdrawal is much more mild than usual. Will start to taper off Librium. Patient remains depressed, isolating and with downcast affect. Discussed medications again and patient agreed to restart Seroquel 200 mg b.i.d. since to his recollection this is what helped his mood the most. Patient also complaining of mid back pain where he had recent osteomyelitis infection and the pain feels similar. -will monitor for back pain and consider ID consult 11/17 Patient much more irritable today. Was upset that 1 of the nurses thought he might be overly sedated and wanted to ask provider whether not to administer certain medication. Patient said that he feels her purposely being difficult with him and that there should be no discussion about his medication except with his doctor. Orientor tried to explain the nurses perspective and that it is very common and expected that if a nurse has any concerns it would check with the provider; patient seem to accept this explanation. He said the only reason he was sedated this morning was because he has not been on Seroquel for while and got a higher dose of trazodone than he probably needed; also that he is on Librium. Orientor agree that these were likely the causes. Patient asked for Seroquel to remain 200 mg b.i.d. but to lower trazodone to which marine underwriter agreed. Other than being irritable he feels his mood is little better and is without any SI. Later on in the day patient got very agitated when asked to not eat in a certain group room; he threw 1 of his milk cartons staff and made a verbal threat, which multiple staff overheard. Code assist called. Patient denied making the threat and said he only rolled the milk on the ground towards the staff but never threw. He said feels singled out by a nurse, being talk to like a child. Patient calmed down. Orientor discussed that it seems he has been misinterpreting staff's interactions and getting dysregulated from it; he nodded. Patient said he will stay calm. -patient would very much benefit from continued treatment; however he is not in imminent risk for harm to self or others Hx of vertebral osteomylitis in October 2019; re-infection 2021 and in hospital for 2 months. -says for past few weeks similar pain is re-emerging, concerned for re- infection; consult to ID placed Plan: CV Q 15 minute checks ID consult placed to assess back pain/osteomylitis Lower Trazodone to 100mg qhs with a repeat Continue Seroquel 200 mg b.i.d.; patient said this seemed to have helped depression before Zyprexa p.r.n. for agitation Continue Librium taper; DC CIWA Continue clonazepam 1 mg b.i.d.; started at last psychiatric hospitalization Continue gabapentin 800 mg t.i.d.; has been on for 10 years for both epilepsy and neuropathic pain Keppra 500 mg b.i.d.; on for 10 years for epilepsy Patient educated on: diagnosis, medication risk/benefits and medical condition Informed Consent: understands Reason for continued inpatient stay Substantial Risk for: stable for discharge and rapid decompensation Time Spent With Patient Time: Total time managing care of this patient today ____ minutes.
[2023-11-18 14:19] VITALS: BP 117/66; PULSE 72
[2023-11-18] MEDS: Nicotine 21 MG PATCH.TD24 TRANSDERMA (16:31)
--- NOTE | 2023-11-18 16:33 | PC.NURSE ---
pt reports 10/10 lower back pain and states Tylenol will not help. Provider EL notified via [employer] connect; awaiting orders
[2023-11-18 17:44] VITALS: BMI 38.6
--- NOTE | 2023-11-18 18:32 | PC.NURSE ---
Prior to this incident, pt has been instructed not to bring food and drink into a group room. At 1655, pt brought a bowl of cereal and packets of sugar to the group room. As pt retrieved milk for his cereal from the kitchen area, staff redirected pt regarding the policy. Pt? ignored staff redirection and continued toward the group room. Staff closed the group room door. Pt appeared irritable and began shouting. Pt stated, ?Why are you guys fucking with me? I came here to get help and you?re messing with me every day.? Pt stated, ?I?ll knock you out on GD.? Pt threw two cartons of milk at a staff member. Pt continued to shout and demanded that staff open the group room door. Pt stated, ?Fine, I won?t eat at all while I?m here! Happy??At 1700, staff called a code assist. Security arrived, and pt continued to shout. Pt gradually appeared to return to behavioral control, and security left the unit at 1720.
[2023-11-18 20:00] VITALS: BP 127/62; PULSE 94; RESP 17; TEMP 36.1; O2SAT 94
[2023-11-18 21:00] VITALS: BP 127/62
[2023-11-18] MEDS: Prazosin HCL 1 MG CAPSULE 2 MG PO (21:00)
[2023-11-18 21:01] VITALS: BP 127/62; PULSE 108
[2023-11-18] MEDS: traZODone HCL 100 MG TABLET PO (21:01)
[2023-11-19] MEDS: Thiamine HCL 100 MG TABLET PO (09:22)
[2023-11-19] MEDS: Propranolol HCL 20 MG TABLET PO ×3 (09:22→20:42)
[2023-11-19] MEDS: Famotidine 20 MG TABLET PO ×2 (09:22→20:44)
[2023-11-19] MEDS: levETIRAcetam 500 MG TABLET PO ×2 (09:22→20:43)
[2023-11-19] MEDS: QUEtiapine Fumarate 200 MG TABLET PO ×2 (09:22→20:43)
[2023-11-19] MEDS: Buprenorphine/Naloxone 8/2 mg FILM 1 FILM BUCCAL ×3 (09:22→20:40)
[2023-11-19] MEDS: busPIRone HCl 10 MG TABLET PO ×3 (09:22→20:44)
[2023-11-19] MEDS: Gabapentin 400 MG CAPSULE 800 MG PO ×3 (09:23→20:40)
[2023-11-19] MEDS: Folic Acid 1 MG TABLET PO (09:23)
[2023-11-19] MEDS: clonazePAM 1 MG TABLET PO ×2 (09:23→20:44)
[2023-11-19] MEDS: Nicotine 21 MG PATCH.TD24 TRANSDERMA (09:27)
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
[2023-11-19] MEDS: Ibuprofen 800 MG TABLET PO ×2 (14:52→20:50)
[2023-11-19 16:34] LABS: Influenza A PCR NEGATIVE (Negative); Influenza B PCR NEGATIVE (Negative); Resp Syncy Virus RNA Qual PCR NEGATIVE (Negative); SARS COV2 PCR INHOUSE NEGATIVE (Negative)
[2023-11-19 20:00] VITALS: BP 118/58; PULSE 71; RESP 16; TEMP 36.5; O2SAT 95
[2023-11-19 20:40] VITALS: BP 115/58
[2023-11-19] MEDS: Prazosin HCL 1 MG CAPSULE 2 MG PO (20:40)
[2023-11-19 20:42] VITALS: BP 115/58; PULSE 72
[2023-11-19] MEDS: traZODone HCL 100 MG TABLET PO (20:43)
[2023-11-19] MEDS: Fluticasone Propionate Nasal 16 GM SPRAY 1 SPRAY NOSTRIL-B (20:49)
--- NOTE | 2023-11-19 22:30 | P.CNID_ITS ---
History of Present Illness Data of Consult Service Date: 11/19/23 Requesting physician: Humble Kraft Primary Care Provider: Unknown Physician HPI Reason for consult: back pain, prior OM LS ?TS He presents to psychiatry unit ,depression,SI,Etoh. He mentions back pain worse over last two weeks and had OM spine 2020, not sure if urine or IVDA related. I do not see records from [facility] in [facility] [place]. He says he had back surgery. He had ID visits. He is not sure of organism He had Hepatitis C cured and now viral load again. He denies HIV. Review of Systems 2 Review of Systems: Yes all other systems are reviewed and are negative Musculoskeletal: Musculoskeletal: Reports back pain PMFSH Past Medical History Medical History (Updated 11/19/23 @ 22:34 by Olga Carter MD) Back pain Cocaine use disorder Alcohol withdrawal Alcohol use disorder PTSD (post-traumatic stress disorder) MDD (major depressive disorder), recurrent severe, without psychosis Family History Family history: reviewed and not pertinent Social History Social History Household Members: None Housing: Homeless Do you presently have visiting nurse or other home services: No Unable to assess alcohol history related to: Refusing to respond Patient Tobacco Use Status: Current everyday Tobacco user Tobacco use type: Cigarette Cigarettes Per Day: 10 Smoked in Last 30 Days: Yes e-Cigarette/Vaping Use: Currently Using Frequency of e-Cigarette/Vaping Use: daily Patient Interested in Nicotine Replacement: Yes Patient Given Instructions on How to Stop Smoking: Yes (To be done by respiratory therapist) Date Education Initiated: 11/15/23 Second Hand Smoke Exposure: Yes Use of substances other than those prescribed or required for medical reasons: Yes Substance Use Type: Crack/Cocaine, Hallucinogens and Marijuana Substance Use Frequency: Chronic Longstanding Last Used Substance: Just Prior to Admission Last Used Substance Other:: crack cocaine and PCP Currently Displaying Signs/Symptoms of Drug Intoxication Withdrawal: No Any prior treatment program specific to substance use: Yes Have you been hit, kicked, punched, or otherwise hurt by someone within the past year? If so, by whom?: No Do you feel safe in your current relationship?: No Current Relationship Is there a partner from a previous relationship who is making you feel unsafe now?: No Are you made to feel afraid or neglected: No Spiritual Healthcare Practices: none Congregational Healthcare Practices: none Cultural Healthcare Practices: none Advance Directives: No Advance Directives Information Provided: No Do you have thoughts of harming others: None Do you have a plan to hurt others: No Plan Recently lost weight without trying: No Nutrition Risks: No Nutritional Risk Poor oral hygiene: Yes service: No Sexual orientation: Straight/Heterosexual Meds Allergies Allergy/AdvReac Type Severity Reaction Status Date / Time amoxicillin Allergy Rash Verified 11/12/23 16:14 codeine Allergy Rash Verified 11/12/23 16:14 seafood Allergy Anaphylaxis Verified 11/12/23 16:14 Active Medications: Current Medications Acetaminophen (Acetaminophen 325 Mg Tablet) 650 mg PO Q6H PRN PRN Reason: Headache/Pain Mild Scale (1-3) Last Admin: 11/17/23 17:05 Dose: 650 mg Al Hydroxide/Mg Hydroxide (Magnesium Hydrox/Alum Hydrox 30 Ml Oral.Susp) 30 ml PO Q6H PRN PRN Reason: Heartburn/Nausea Albuterol Sulfate (Albuterol Sulfate 90 Mcg 8 Gm Inhaler) 4 puff INHALE Q2H PRN PRN Reason: Shortness of Breath Buprenorphine/Naloxone (Buprenorphine/Naloxone 8/2 Mg Film) 1 film BUCCAL TID [facility] Last Admin: 11/19/23 20:40 Dose: 1 film Buspirone HCl (Buspirone Hcl 10 Mg Tablet) 10 mg PO TID [facility] Last Admin: 11/19/23 20:44 Dose: 10 mg Clonazepam (Clonazepam 1 Mg Tablet) 1 mg PO BID [facility] Last Admin: 11/19/23 20:44 Dose: 1 mg Famotidine (Famotidine 20 Mg Tablet) 20 mg PO BID [facility] Last Admin: 11/19/23 20:44 Dose: 20 mg Fluticasone Propionate (Fluticasone Propionate Nasal 16 Gm [place]) 1 spray NOSTRIL-B BID [facility] Last Admin: 11/19/23 20:49 Dose: 1 spray Folic Acid (Folic Acid 1 Mg Tablet) 1 mg PO DAILY [facility] Last Admin: 11/19/23 09:23 Dose: 1 mg Gabapentin (Gabapentin 400 Mg Capsule) 800 mg PO TID [facility] Last Admin: 11/19/23 20:40 Dose: 800 mg Hydroxyzine HCl (Hydroxyzine Hcl 25 Mg Tablet) 25 mg PO Q6H PRN PRN Reason: Anxiety Last Admin: 11/16/23 06:39 Dose: 25 mg Ibuprofen (Ibuprofen 800 Mg Tablet) 800 mg PO Q8H PRN PRN Reason: back pain Last Admin: 11/19/23 20:50 Dose: 800 mg Levetiracetam (Levetiracetam 500 Mg Tablet) 500 mg PO BID [facility] Last Admin: 11/19/23 20:43 Dose: 500 mg Magnesium Hydroxide (Milk Of Magnesia 30 Ml Oral.Susp) 30 ml PO DAILY PRN PRN Reason: Constipation Nicotine (Nicotine 21 Mg Patch.Td24) 21 mg TRANSDERMA DAILY PRN PRN Reason: smoking cessation Last Admin: 11/19/23 09:27 Dose: 21 mg Nicotine Polacrilex (Nicotine Polacrilex 2 Mg Gum) 4 mg BUCCAL Q2H PRN PRN Reason: Nicotine Cravings Last Admin: 11/16/23 09:26 Dose: 4 mg Olanzapine (Olanzapine 7.5 Mg Tablet) 7.5 mg PO TID PRN PRN Reason: agitation Prazosin HCl (Prazosin Hcl 1 Mg Capsule) 2 mg PO BEDTIME [facility]; Protocol Last Admin: 11/19/23 20:40 Dose: 2 mg Propranolol HCl (Propranolol Hcl 20 Mg Tablet) 20 mg PO TID [facility]; Protocol Last Admin: 11/19/23 20:42 Dose: 20 mg Quetiapine Fumarate (Quetiapine Fumarate 200 Mg Tablet) 200 mg PO BID [facility] Last Admin: 11/19/23 20:43 Dose: 200 mg Thiamine HCl (Thiamine Hcl 100 Mg Tablet) 100 mg PO DAILY [facility] Last Admin: 11/19/23 09:22 Dose: 100 mg Trazodone HCl (Trazodone Hcl 100 Mg Tablet) 100 mg PO BEDTIME MRX1 [facility] Last Admin: 11/19/23 20:43 Dose: 100 mg Home Medications ?Medication ?Instructions ?Recorded ?Confirmed ?Last Taken ?Type buprenorphine 8 mg-naloxone 2 mg 2.5 film buccal DAILY 11/13/23 11/16/23 Unknown History sublingual film (Suboxone) gabapentin 800 mg tablet 800 mg PO TID 11/13/23 11/13/23 Unknown History levetiracetam 500 mg tablet 500 mg PO BID 11/13/23 11/13/23 11/11/23 History (Keppra) albuterol 90 mcg/actuation aerosol See Rx Instructions .Route 11/16/23 Unknown History inhaler .COMPLEX PRN wheezing buspirone 10 mg tablet 10 mg PO TID 11/16/23 11/16/23 Unknown History olanzapine 7.5 mg tablet 7.5 mg PO 3XD PRN Anxiety 11/16/23 11/16/23 Unknown History prazosin 2 mg capsule 2 mg PO BEDTIME 11/16/23 11/16/23 Unknown History propranolol 20 mg tablet 20 mg PO TID 11/16/23 11/16/23 Unknown History sertraline 50 mg tablet 50 mg PO DAILY 11/16/23 11/16/23 Unknown History trazodone 150 mg tablet 150 mg PO BEDTIME 11/16/23 11/16/23 Unknown History Physical Exam 2 Vital Signs: Vital Signs: Last Vital Signs Temp 97.7 F 11/19/23 20:00 Pulse 72 11/19/23 20:42 Resp 16 11/19/23 20:00 BP 115/58 L 11/19/23 20:42 Pulse Ox 95 11/19/23 20:00 O2 Del Method Room Air 11/19/23 20:00 BMI result Body Mass Index 38.6 Const: General: cooperative HEENT: Head: Yes normal to inspection Face and sinus: Yes normal facial exam Mouth: Normal oral and palatal mucosa present Teeth and gingiva: d entition normal Eyes: General: appearance normal, both eyes and all related structures P upils: Equal, round and reactive pupils present Resp: Effort & Inspection: normal respiratory effort Cardio: Rate: regular rate Rhythm: regular rhythm GI: Palpation (GI): Soft to palpation and nontender Back/Spine/Pelvis: Other: pain back bending forward Skin: General skin exam: no rashes or lesions noted Neuro: General: moves all extremities Cranial nerves: Yes Equal, round and reactive pupils present Extrem: General: Yes normal to inspection Psych: Appearance: grossly normal Results Labs 11/12/23 16:27 11/12/23 16:27 Assessment and Plan (1) Back pain: Status: Acute Plan He had pror OM and recurrence 2021. I do not have organism or info yet from [facility] but that has been ordered. There are no signs of cord compromise with no urinary symptoms or trouble walking so doubt recurrence of infection. Would check ESR. Start with lumbar XR 2 view ordered. If neither test indicates acute problem would not start antibiotics and if no fever.
[2023-11-20] MEDS: traZODone HCL 100 MG TABLET PO ×2 (00:15→21:23)
[2023-11-20 08:00] VITALS: BP 158/81; PULSE 73; RESP 16; TEMP 36.3; O2SAT 97
--- NOTE | 2023-11-20 08:37 | HO.PSYCHPN ---
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 and not willing to take further blood test- had told himt hat his dr had suggested ESR - also annoyed that xray wouldn't show much- had to have mri to get it dx- Medication Compliance: Yes Side effects from medications: No Attending Groups: No Review of Systems Acute medical concerns: No not acute but co pain in back- ibuprofen 800mg x 1 did'nt make any difference to patient- Medical Review of Systems: unchanged Mental Status Exam Mental Status Exam Narrative: No si ON unit but reports will overdose if dced Patient Appearance: Unkempt Patient Orientation: Person, Place, Time and Situation Level of Consciousness: Awake Patient Behavior: Appropriate Mood Description: Calm Affect Description: Labile (annoyed) and Blunted Patient Cognition Impaired: No Ability to Follow Directions: Fair Speech Pattern: Clear Hallucinations: None Delusions: Not Present Thought Process: Intact Thought Content: positive for Preoccupation Depressive Symptoms: Increased Irritability (apparently less on quetiapine taking edge off) Abnormal Motor Activity Signs and Symptoms: Restlessness Judgement: Fair Diagnostics Vital Signs (24Hr): Vital Signs - 24 hr 11/19/23 20:00 11/19/23 20:40 11/19/23 20:42 Temperature 97.7 F Pulse Rate 71 72 Respiratory Rate 16 Blood Pressure 118/58 L 115/58 L 115/58 L Pulse Oximetry 95 Oxygen Delivery Method Room Air BMI result Body Mass Index 38.6 Labs 11/12/23 16:27 11/12/23 16:27 Labs: Laboratory Results - last 48 hr 11/19/23 15:30 Influenza Type A (PCR) NEGATIVE Influenza Type B (PCR) NEGATIVE RSV RNA Qual (PCR) NEGATIVE SARS-CoV-2 RNA (RT-PCR) NEGATIVE Medications Medications Current Medications Acetaminophen (Acetaminophen 325 Mg Tablet) 650 mg PO Q6H PRN PRN Reason: Headache/Pain Mild Scale (1-3) Last Admin: 11/17/23 17:05 Dose: 650 mg Al Hydroxide/Mg Hydroxide (Magnesium Hydrox/Alum Hydrox 30 Ml Oral.Susp) 30 ml PO Q6H PRN PRN Reason: Heartburn/Nausea Albuterol Sulfate (Albuterol Sulfate 90 Mcg 8 Gm Inhaler) 4 puff INHALE Q2H PRN PRN Reason: Shortness of Breath Buprenorphine/Naloxone (Buprenorphine/Naloxone 8/2 Mg Film) 1 film BUCCAL TID [facility] Last Admin: 11/19/23 20:40 Dose: 1 film Buspirone HCl (Buspirone Hcl 10 Mg Tablet) 10 mg PO TID [facility] Last Admin: 11/19/23 20:44 Dose: 10 mg Clonazepam (Clonazepam 1 Mg Tablet) 1 mg PO BID [facility] Last Admin: 11/19/23 20:44 Dose: 1 mg Famotidine (Famotidine 20 Mg Tablet) 20 mg PO BID [facility] Last Admin: 11/19/23 20:44 Dose: 20 mg Fluticasone Propionate (Fluticasone Propionate Nasal 16 Gm [place]) 1 spray NOSTRIL-B BID [facility] Last Admin: 11/19/23 20:49 Dose: 1 spray Folic Acid (Folic Acid 1 Mg Tablet) 1 mg PO DAILY [facility] Last Admin: 11/19/23 09:23 Dose: 1 mg Gabapentin (Gabapentin 400 Mg Capsule) 800 mg PO TID [facility] Last Admin: 11/19/23 20:40 Dose: 800 mg Hydroxyzine HCl (Hydroxyzine Hcl 25 Mg Tablet) 25 mg PO Q6H PRN PRN Reason: Anxiety Last Admin: 11/16/23 06:39 Dose: 25 mg Ibuprofen (Ibuprofen 800 Mg Tablet) 800 mg PO Q8H PRN PRN Reason: back pain Last Admin: 11/19/23 20:50 Dose: 800 mg Levetiracetam (Levetiracetam 500 Mg Tablet) 500 mg PO BID [facility] Last Admin: 11/19/23 20:43 Dose: 500 mg Magnesium Hydroxide (Milk Of Magnesia 30 Ml Oral.Susp) 30 ml PO DAILY PRN PRN Reason: Constipation Nicotine (Nicotine 21 Mg Patch.Td24) 21 mg TRANSDERMA DAILY PRN PRN Reason: smoking cessation Last Admin: 11/19/23 09:27 Dose: 21 mg Nicotine Polacrilex (Nicotine Polacrilex 2 Mg Gum) 4 mg BUCCAL Q2H PRN PRN Reason: Nicotine Cravings Last Admin: 11/16/23 09:26 Dose: 4 mg Olanzapine (Olanzapine 7.5 Mg Tablet) 7.5 mg PO TID PRN PRN Reason: agitation Prazosin HCl (Prazosin Hcl 1 Mg Capsule) 2 mg PO BEDTIME [facility]; Protocol Last Admin: 11/19/23 20:40 Dose: 2 mg Propranolol HCl (Propranolol Hcl 20 Mg Tablet) 20 mg PO TID [facility]; Protocol Last Admin: 11/19/23 20:42 Dose: 20 mg Quetiapine Fumarate (Quetiapine Fumarate 200 Mg Tablet) 200 mg PO BID [facility] Last Admin: 11/19/23 20:43 Dose: 200 mg Thiamine HCl (Thiamine Hcl 100 Mg Tablet) 100 mg PO DAILY [facility] Last Admin: 11/19/23 09:22 Dose: 100 mg Trazodone HCl (Trazodone Hcl 100 Mg Tablet) 100 mg PO BEDTIME MRX1 [facility] Last Admin: 11/20/23 00:15 Dose: 100 mg Allergies Allergies Allergy/AdvReac Type Severity Reaction Status Date / Time amoxicillin Allergy Rash Verified 11/12/23 16:14 codeine Allergy Rash Verified 11/12/23 16:14 seafood Allergy Anaphylaxis Verified 11/12/23 16:14 Assessment & Plan Assessment & Plan (1) Back pain: Status: Acute Code(s): M54.9 - Dorsalgia, unspecified Assessment and Plan: ongoing- (2) PTSD (post-traumatic stress disorder): Status: Acute Code(s): F43.10 - Post-traumatic stress disorder, unspecified (3) Polysubstance abuse: Status: Acute Code(s): F19.10 - Other psychoactive substance abuse, uncomplicated Plan He had pror OM and recurrence 2021. I do not have organism or info yet from [facility] but that has been ordered. There are no signs of cord compromise with no urinary symptoms or trouble walking so doubt recurrence of infection. Would check ESR. Start with lumbar XR 2 view ordered. If neither test indicates acute problem would not start antibiotics and if no fever. 11/20/23 refuses ESR doesn't want another blood test- quetiapine seems to have helped irritability Patient educated on: medication risk/benefits and medical condition Informed Consent: further education needed Reason for continued inpatient stay Substantial Risk for: harm to self, rapid decompensation and med/psych decompensation Time Spent With Patient Time: Total time managing care of this patient today ____ minutes.
[2023-11-20] MEDS: Buprenorphine/Naloxone 8/2 mg FILM 1 FILM BUCCAL ×3 (09:29→21:21)
[2023-11-20] MEDS: OLANZapine 7.5 MG TABLET PO (09:32)
[2023-11-20] MEDS: Gabapentin 400 MG CAPSULE 800 MG PO ×3 (09:32→21:22)
[2023-11-20] MEDS: clonazePAM 1 MG TABLET PO ×2 (09:32→21:23)
[2023-11-20] MEDS: Famotidine 20 MG TABLET PO ×2 (09:32→21:23)
[2023-11-20] MEDS: QUEtiapine Fumarate 200 MG TABLET PO ×2 (09:32→21:23)
[2023-11-20] MEDS: busPIRone HCl 10 MG TABLET PO ×3 (09:32→21:22)
[2023-11-20] MEDS: Folic Acid 1 MG TABLET PO (09:32)
[2023-11-20] MEDS: levETIRAcetam 500 MG TABLET PO ×2 (09:32→21:23)
[2023-11-20] MEDS: Thiamine HCL 100 MG TABLET PO (09:32)
[2023-11-20] MEDS: Nicotine 21 MG PATCH.TD24 TRANSDERMA (10:02)
[2023-11-20] MEDS: Propranolol HCL 20 MG TABLET PO ×3 (10:03→21:23)
[2023-11-20] MEDS: Fluticasone Propionate Nasal 16 GM SPRAY 1 SPRAY NOSTRIL-B (10:04)
--- NOTE | 2023-11-20 13:57 | PC.NURSE ---
pt refused labs twice today despite encouragement and education from staff and nursing
[2023-11-20 14:53] LABS: Erythrocyte Sedimentation Rate 6 MM/HR (0-15)
[2023-11-20 20:00] VITALS: BP 130/74; PULSE 92; RESP 18; TEMP 37.2; O2SAT 93
[2023-11-20 21:22] VITALS: BP 130/74
[2023-11-20] MEDS: Prazosin HCL 1 MG CAPSULE 2 MG PO (21:22)
[2023-11-20] MEDS: Ibuprofen 800 MG TABLET PO (21:22)
[2023-11-20 21:23] VITALS: BP 130/74; PULSE 92
[2023-11-21] MEDS: Fluticasone Propionate Nasal 16 GM SPRAY 1 SPRAY NOSTRIL-B ×3 (01:15→22:14)
[2023-11-21 08:00] VITALS: BP 123/76; PULSE 71; RESP 16; TEMP 36.6; O2SAT 97
[2023-11-21] MEDS: Buprenorphine/Naloxone 8/2 mg FILM 1 FILM BUCCAL ×3 (09:15→22:14)
[2023-11-21] MEDS: Folic Acid 1 MG TABLET PO (09:24)
[2023-11-21] MEDS: Gabapentin 400 MG CAPSULE 800 MG PO ×3 (09:24→22:15)
[2023-11-21] MEDS: QUEtiapine Fumarate 200 MG TABLET PO ×2 (09:24→22:16)
[2023-11-21] MEDS: Thiamine HCL 100 MG TABLET PO (09:24)
[2023-11-21] MEDS: busPIRone HCl 10 MG TABLET PO ×3 (09:24→22:16)
[2023-11-21] MEDS: clonazePAM 1 MG TABLET PO ×2 (09:24→22:16)
[2023-11-21] MEDS: levETIRAcetam 500 MG TABLET PO ×2 (09:24→22:15)
[2023-11-21] MEDS: hydrOXYzine HCL 25 MG TABLET PO ×2 (09:24→17:36)
[2023-11-21] MEDS: Famotidine 20 MG TABLET PO ×2 (09:24→22:15)
[2023-11-21] MEDS: Propranolol HCL 20 MG TABLET PO ×3 (09:47→22:15)
--- NOTE | 2023-11-21 10:45 | HO.PSYCHPN ---
Subjective Subjective Date of Service: 11/21/23 Reason For Visit: depressed/SI Subjective Notes: Conditional Voluntary Medical Problems Affecting Mental Status: Yes (claims his back pain stressing him ) Interim History: 43 yo whom I could not get to focus on anything other than his sense that his back pain is his main problem- despite much redirection until he gave up - Only says he will kill himself if he leaves- but not looking for emotional help as I can see- redirected to outpt re back pain - as ESR wnl Medication Compliance: Yes Side effects from medications: No Attending Groups: No Review of Systems Acute medical concerns: No Medical Review of Systems: unchanged Mental Status Exam Mental Status Exam Narrative: No si ON unit but reports will overdose if dced Patient Appearance: Unkempt Patient Orientation: Person, Place, Time and Situation Level of Consciousness: Awake Patient Behavior: Appropriate Mood Description: Calm Affect Description: Labile (annoyed) and Blunted Patient Cognition Impaired: No Ability to Follow Directions: Fair Speech Pattern: Clear Hallucinations: None Delusions: Not Present Thought Process: Intact Thought Content: positive for Preoccupation Depressive Symptoms: Increased Irritability (apparently less on quetiapine taking edge off) Abnormal Motor Activity Signs and Symptoms: Restlessness Judgement: Fair Diagnostics Vital Signs (24Hr): Vital Signs - 24 hr 11/20/23 20:00 11/20/23 21:22 11/20/23 21:23 Temperature 99.0 F Pulse Rate 92 92 Respiratory Rate 18 Blood Pressure 130/74 130/74 130/74 Pulse Oximetry 93 Oxygen Delivery Method Room Air BMI result Body Mass Index 38.6 Labs 11/12/23 16:27 11/12/23 16:27 Labs: Laboratory Results - last 48 hr 11/19/23 11/20/23 15:30 14:04 ESR 6 Influenza Type A (PCR) NEGATIVE Influenza Type B (PCR) NEGATIVE RSV RNA Qual (PCR) NEGATIVE SARS-CoV-2 RNA (RT-PCR) NEGATIVE Imaging Radiology Impressions: ITS Impressions Lumbar Spine X-Ray 11/20/23 09:46 IMPRESSION: * No acute radiographic abnormalities in the lumbar spine. * There is an old anterior wedge compression deformity of the L1 vertebral body and there is chronic loss of height of the L1-L2 disc space. Medications Medications Current Medications Acetaminophen (Acetaminophen 325 Mg Tablet) 650 mg PO Q6H PRN PRN Reason: Headache/Pain Mild Scale (1-3) Last Admin: 11/17/23 17:05 Dose: 650 mg Al Hydroxide/Mg Hydroxide (Magnesium Hydrox/Alum Hydrox 30 Ml Oral.Susp) 30 ml PO Q6H PRN PRN Reason: Heartburn/Nausea Albuterol Sulfate (Albuterol Sulfate 90 Mcg 8 Gm Inhaler) 4 puff INHALE Q2H PRN PRN Reason: Shortness of Breath Buprenorphine/Naloxone (Buprenorphine/Naloxone 8/2 Mg Film) 1 film BUCCAL TID [facility] Last Admin: 11/21/23 09:15 Dose: 1 film Buspirone HCl (Buspirone Hcl 10 Mg Tablet) 10 mg PO TID [facility] Last Admin: 11/21/23 09:24 Dose: 10 mg Clonazepam (Clonazepam 1 Mg Tablet) 1 mg PO BID [facility] Last Admin: 11/21/23 09:24 Dose: 1 mg Famotidine (Famotidine 20 Mg Tablet) 20 mg PO BID [facility] Last Admin: 11/21/23 09:24 Dose: 20 mg Fluticasone Propionate (Fluticasone Propionate Nasal 16 Gm [place]) 1 spray NOSTRIL-B BID [facility] Last Admin: 11/21/23 09:47 Dose: 1 spray Folic Acid (Folic Acid 1 Mg Tablet) 1 mg PO DAILY [facility] Last Admin: 11/21/23 09:24 Dose: 1 mg Gabapentin (Gabapentin 400 Mg Capsule) 800 mg PO TID [facility] Last Admin: 11/21/23 09:24 Dose: 800 mg Hydroxyzine HCl (Hydroxyzine Hcl 25 Mg Tablet) 25 mg PO Q6H PRN PRN Reason: Anxiety Last Admin: 11/21/23 09:24 Dose: 25 mg Ibuprofen (Ibuprofen 800 Mg Tablet) 800 mg PO Q8H PRN PRN Reason: back pain Last Admin: 11/20/23 21:22 Dose: 800 mg Levetiracetam (Levetiracetam 500 Mg Tablet) 500 mg PO BID [facility] Last Admin: 11/21/23 09:24 Dose: 500 mg Magnesium Hydroxide (Milk Of Magnesia 30 Ml Oral.Susp) 30 ml PO DAILY PRN PRN Reason: Constipation Nicotine (Nicotine 21 Mg Patch.Td24) 21 mg TRANSDERMA DAILY PRN PRN Reason: smoking cessation Last Admin: 11/20/23 10:02 Dose: 21 mg Nicotine Polacrilex (Nicotine Polacrilex 2 Mg Gum) 4 mg BUCCAL Q2H PRN PRN Reason: Nicotine Cravings Last Admin: 11/16/23 09:26 Dose: 4 mg Olanzapine (Olanzapine 7.5 Mg Tablet) 7.5 mg PO TID PRN PRN Reason: agitation Last Admin: 11/20/23 09:32 Dose: 7.5 mg Prazosin HCl (Prazosin Hcl 1 Mg Capsule) 2 mg PO BEDTIME [facility]; Protocol Last Admin: 11/20/23 21:22 Dose: 2 mg Propranolol HCl (Propranolol Hcl 20 Mg Tablet) 20 mg PO TID [facility]; Protocol Last Admin: 11/21/23 09:47 Dose: 20 mg Quetiapine Fumarate (Quetiapine Fumarate 200 Mg Tablet) 200 mg PO BID [facility] Last Admin: 11/21/23 09:24 Dose: 200 mg Thiamine HCl (Thiamine Hcl 100 Mg Tablet) 100 mg PO DAILY [facility] Last Admin: 11/21/23 09:24 Dose: 100 mg Trazodone HCl (Trazodone Hcl 100 Mg Tablet) 100 mg PO BEDTIME MRX1 [facility] Last Admin: 11/21/23 05:34 Dose: Not Given Allergies Allergies Allergy/AdvReac Type Severity Reaction Status Date / Time amoxicillin Allergy Rash Verified 11/12/23 16:14 codeine Allergy Rash Verified 11/12/23 16:14 seafood Allergy Anaphylaxis Verified 11/12/23 16:14 Assessment & Plan Assessment & Plan (1) Back pain: Status: Acute Code(s): M54.9 - Dorsalgia, unspecified Assessment and Plan: ongoing- (2) PTSD (post-traumatic stress disorder): Status: Acute Code(s): F43.10 - Post-traumatic stress disorder, unspecified (3) Polysubstance abuse: Status: Acute Code(s): F19.10 - Other psychoactive substance abuse, uncomplicated Plan He had pror OM and recurrence 2021. I do not have organism or info yet from [facility] but that has been ordered. There are no signs of cord compromise with no urinary symptoms or trouble walking so doubt recurrence of infection. Would check ESR. Start with lumbar XR 2 view ordered. If neither test indicates acute problem would not start antibiotics and if no fever. 11/20/23 refuses ESR doesn't want another blood test- quetiapine seems to have helped irritability 11/21/23 - pt refuses to engage about mental health care- only focused on back pain Patient educated on: medical condition Informed Consent: understands (but refuses to believe) Reason for continued inpatient stay Substantial Risk for: rapid decompensation Time Spent With Patient Time: Total time managing care of this patient today ____ minutes.
[2023-11-21] MEDS: OLANZapine 7.5 MG TABLET PO ×3 (12:09→22:15)
[2023-11-21] MEDS: Ibuprofen 800 MG TABLET PO ×2 (13:45→22:15)
[2023-11-21 20:00] VITALS: BP 121/91; PULSE 76; RESP 18; TEMP 36.8; O2SAT 99
[2023-11-21] MEDS: Prazosin HCL 1 MG CAPSULE 2 MG PO (22:15)
[2023-11-21] MEDS: traZODone HCL 100 MG TABLET PO (22:15)
[2023-11-22] MEDS: hydrOXYzine HCL 25 MG TABLET PO (05:36)
[2023-11-22 08:00] VITALS: BP 141/68; PULSE 67; RESP 18; TEMP 36.6; O2SAT 67
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
[2023-11-22 09:03] VITALS: BP 141/68; PULSE 67
[2023-11-22] MEDS: levETIRAcetam 500 MG TABLET PO ×2 (09:03→21:14)
[2023-11-22] MEDS: Folic Acid 1 MG TABLET PO (09:03)
[2023-11-22] MEDS: busPIRone HCl 10 MG TABLET PO ×3 (09:03→21:14)
[2023-11-22] MEDS: QUEtiapine Fumarate 200 MG TABLET PO ×2 (09:03→21:15)
[2023-11-22] MEDS: clonazePAM 1 MG TABLET PO ×2 (09:03→21:14)
[2023-11-22] MEDS: Propranolol HCL 20 MG TABLET PO ×3 (09:03→21:15)
[2023-11-22] MEDS: Gabapentin 400 MG CAPSULE 800 MG PO ×3 (09:03→21:14)
[2023-11-22] MEDS: Famotidine 20 MG TABLET PO ×2 (09:03→21:14)
[2023-11-22] MEDS: Thiamine HCL 100 MG TABLET PO (09:03)
[2023-11-22] MEDS: Buprenorphine/Naloxone 8/2 mg FILM 1 FILM BUCCAL ×3 (09:04→21:15)
[2023-11-22] MEDS: Fluticasone Propionate Nasal 16 GM SPRAY 1 SPRAY NOSTRIL-B (09:37)
[2023-11-22 15:13] LABS: Appearance Urine Clear; Color Urine Yellow; Glucose Urine UA Negative (Negative); Leukocyte Esterase Urine Negative (Negative); Nitrite Urine Negative (Negative); PH 7.5 (5.0-9.0); Specific Gravity - Urine 1.015 (1.005-1.025); Urine Blood Negative (Negative); Urine Ketones Negative (Negative); Urine Protein Negative (Neg-Trace)
[2023-11-22 15:14] LABS: Amphetamine Screen Urine Not Detected (Not Detect); Barbiturates, Urine POSITIVE (Not Detect); Benzodiazepines Screen Urine POSITIVE (Not Detect); Buprenorphine Scr Positive (Not Detect); Cannabinoid Screen Urine Not Detected (Not Detect); Cocaine Screen Urine Not Detected (Not Detect); Fentanyl, urine Not Detected (Not Detect); Methadone Screen, Urine Not Detected (Not Detect); Opiate Screen Urine Not Detected (Not Detect); Oxycodone Screen Urine Not Detected (Not Detect); Phencyclidine Screen Urine Not Detected (Not Detect)
[2023-11-22 15:16] LABS: Bacteria Urine None Seen (None Seen); Hyaline Casts Urine 0-2 /LPF (0-2); RBC Urine 0-2 /HPF (0-2); Squamous Epithelial Cell Urine 0-2 /HPF (0-2); WBC Urine 0-5 /HPF (0-5)
[2023-11-22 15:33] VITALS: BP 121/103
[2023-11-22] MEDS: Ibuprofen 800 MG TABLET PO (17:04)
[2023-11-22 20:00] VITALS: BP 121/62; PULSE 70; RESP 16; TEMP 37.3; O2SAT 90
[2023-11-22] MEDS: Prazosin HCL 1 MG CAPSULE 2 MG PO (21:14)
[2023-11-22] MEDS: traZODone HCL 100 MG TABLET PO (21:44)
[2023-11-23 08:00] VITALS: BP 128/84; PULSE 88; RESP 16; TEMP 36.8; O2SAT 97
[2023-11-23] MEDS: Gabapentin 400 MG CAPSULE 800 MG PO ×3 (09:00→22:06)
[2023-11-23] MEDS: Buprenorphine/Naloxone 8/2 mg FILM 1 FILM BUCCAL ×3 (09:00→22:07)
[2023-11-23] MEDS: busPIRone HCl 10 MG TABLET PO ×3 (09:00→22:04)
[2023-11-23] MEDS: levETIRAcetam 500 MG TABLET PO ×2 (09:00→22:04)
[2023-11-23] MEDS: Propranolol HCL 20 MG TABLET PO ×3 (09:00→22:05)
[2023-11-23] MEDS: clonazePAM 1 MG TABLET PO ×2 (09:00→22:04)
[2023-11-23] MEDS: Folic Acid 1 MG TABLET PO (09:01)
[2023-11-23] MEDS: Thiamine HCL 100 MG TABLET PO (09:01)
[2023-11-23] MEDS: Ibuprofen 800 MG TABLET PO ×2 (09:01→20:57)
[2023-11-23] MEDS: Famotidine 20 MG TABLET PO ×2 (09:01→22:03)
[2023-11-23] MEDS: OLANZapine 7.5 MG TABLET PO ×2 (10:31→14:57)
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
[2023-11-23 21:45] VITALS: BP 129/73; PULSE 77; TEMP 36.4; O2SAT 96
[2023-11-23] MEDS: Prazosin HCL 1 MG CAPSULE 2 MG PO (22:02)
[2023-11-23] MEDS: traZODone HCL 100 MG TABLET PO (22:05)
[2023-11-23] MEDS: QUEtiapine Fumarate 400 MG TABLET PO (22:06)
[2023-11-23] MEDS: Fluticasone Propionate Nasal 16 GM SPRAY 1 SPRAY NOSTRIL-B (22:07)
[2023-11-24 07:30] VITALS: BP 139/73; PULSE 78; RESP 16; TEMP 36.8; O2SAT 96
[2023-11-24] MEDS: Thiamine HCL 100 MG TABLET PO (09:22)
[2023-11-24] MEDS: Buprenorphine/Naloxone 8/2 mg FILM 1 FILM BUCCAL ×3 (09:22→21:13)
[2023-11-24] MEDS: Gabapentin 400 MG CAPSULE 800 MG PO ×3 (09:22→21:12)
[2023-11-24] MEDS: Fluticasone Propionate Nasal 16 GM SPRAY 1 SPRAY NOSTRIL-B ×2 (09:22→22:01)
[2023-11-24 09:23] VITALS: BP 139/73; PULSE 78
[2023-11-24] MEDS: Folic Acid 1 MG TABLET PO (09:23)
[2023-11-24] MEDS: levETIRAcetam 500 MG TABLET PO ×2 (09:23→21:12)
[2023-11-24] MEDS: busPIRone HCl 10 MG TABLET PO ×3 (09:23→21:13)
[2023-11-24] MEDS: clonazePAM 1 MG TABLET PO ×2 (09:23→21:12)
[2023-11-24] MEDS: Propranolol HCL 20 MG TABLET PO ×3 (09:23→21:12)
[2023-11-24] MEDS: Famotidine 20 MG TABLET PO ×2 (09:23→21:12)
--- NOTE | 2023-11-24 09:28 | PC.NURSE ---
Pt with BL non-pitting edema in feet. Right side slightly worse. Reports pain in feet as well as R inside knee. Reported to Dr. Kraft via [employer].
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
[2023-11-24] MEDS: Nicotine 21 MG PATCH.TD24 TRANSDERMA (09:34)
[2023-11-24] MEDS: OLANZapine 7.5 MG TABLET PO ×2 (12:12→21:16)
[2023-11-24 16:12] VITALS: BP 134/72; PULSE 91
[2023-11-24 20:00] VITALS: BP 114/59; PULSE 75; RESP 22; TEMP 35.6; O2SAT 94
[2023-11-24] MEDS: Prazosin HCL 1 MG CAPSULE 2 MG PO (21:12)
[2023-11-24] MEDS: QUEtiapine Fumarate 400 MG TABLET PO (21:12)
[2023-11-24] MEDS: Ibuprofen 800 MG TABLET PO (22:01)
[2023-11-25 07:00] VITALS: BMI 38.9
[2023-11-25 07:30] VITALS: BP 131/81; PULSE 72; RESP 15; TEMP 36.4; O2SAT 94
[2023-11-25] MEDS: Nicotine 21 MG PATCH.TD24 TRANSDERMA (08:33)
[2023-11-25 08:34] VITALS: BP 131/81; PULSE 94
[2023-11-25] MEDS: busPIRone HCl 10 MG TABLET PO ×3 (08:34→20:57)
[2023-11-25] MEDS: Propranolol HCL 20 MG TABLET PO ×3 (08:34→20:57)
[2023-11-25] MEDS: Famotidine 20 MG TABLET PO ×2 (08:34→20:58)
[2023-11-25] MEDS: Folic Acid 1 MG TABLET PO (08:34)
[2023-11-25] MEDS: Fluticasone Propionate Nasal 16 GM SPRAY 1 SPRAY NOSTRIL-B ×2 (08:34→21:01)
[2023-11-25] MEDS: Thiamine HCL 100 MG TABLET PO (08:34)
[2023-11-25] MEDS: clonazePAM 1 MG TABLET PO ×2 (08:34→20:57)
[2023-11-25] MEDS: levETIRAcetam 500 MG TABLET PO ×2 (08:34→20:58)
[2023-11-25] MEDS: Gabapentin 400 MG CAPSULE 800 MG PO ×3 (08:34→20:56)
[2023-11-25] MEDS: Buprenorphine/Naloxone 8/2 mg FILM 1 FILM BUCCAL ×3 (08:34→20:56)
[2023-11-25] MEDS: OLANZapine 7.5 MG TABLET PO ×2 (09:20→18:35)
[2023-11-25] MEDS: Acetaminophen 325 MG TABLET 650 MG PO (09:23)
[2023-11-25] MEDS: Ibuprofen 800 MG TABLET PO (09:24)
[2023-11-25 11:39] LABS: Levetiracetam Keppra 13.3 mcg/mL (6.0-46.0)
[2023-11-25 14:36] VITALS: BP 114/71; PULSE 74
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
[2023-11-25 20:00] VITALS: BP 109/62; PULSE 77; TEMP 36.7; O2SAT 93
[2023-11-25 20:56] VITALS: BP 109/62
[2023-11-25] MEDS: Prazosin HCL 1 MG CAPSULE 2 MG PO (20:56)
[2023-11-25 20:57] VITALS: BP 109/62; PULSE 77
[2023-11-25] MEDS: QUEtiapine Fumarate 400 MG TABLET PO (20:57)
[2023-11-25] MEDS: traZODone HCL 100 MG TABLET PO (20:57)
[2023-11-26 08:00] VITALS: BP 135/68; PULSE 95; RESP 18; TEMP 36.6; O2SAT 95
[2023-11-26 09:45] VITALS: BP 135/68
[2023-11-26] MEDS: levETIRAcetam 500 MG TABLET PO ×2 (09:45→21:49)
[2023-11-26] MEDS: Folic Acid 1 MG TABLET PO (09:45)
[2023-11-26] MEDS: Propranolol HCL 20 MG TABLET PO ×3 (09:45→21:49)
[2023-11-26] MEDS: Gabapentin 400 MG CAPSULE 800 MG PO ×3 (09:45→21:49)
[2023-11-26] MEDS: Thiamine HCL 100 MG TABLET PO (09:45)
[2023-11-26] MEDS: Famotidine 20 MG TABLET PO ×2 (09:45→21:50)
[2023-11-26] MEDS: clonazePAM 1 MG TABLET PO ×2 (09:45→21:49)
[2023-11-26] MEDS: busPIRone HCl 10 MG TABLET PO ×3 (09:45→21:50)
[2023-11-26] MEDS: Buprenorphine/Naloxone 8/2 mg FILM 1 FILM BUCCAL ×3 (09:46→21:48)
[2023-11-26] MEDS: Nicotine 21 MG PATCH.TD24 TRANSDERMA (11:33)
[2023-11-26] MEDS: OLANZapine 7.5 MG TABLET PO ×2 (11:33→18:56)
[2023-11-26 14:29] VITALS: BP 128/60; PULSE 83
[2023-11-26] MEDS: Ibuprofen 800 MG TABLET PO (18:56)
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
[2023-11-26 20:00] VITALS: BP 129/74; PULSE 87; RESP 20; TEMP 37.4; O2SAT 95
[2023-11-26 21:48] VITALS: BP 129/74
[2023-11-26] MEDS: Prazosin HCL 1 MG CAPSULE 2 MG PO (21:48)
[2023-11-26 21:49] VITALS: BP 129/74; PULSE 87
[2023-11-26] MEDS: QUEtiapine Fumarate 400 MG TABLET PO (21:50)
[2023-11-26] MEDS: traZODone HCL 100 MG TABLET PO (21:50)
[2023-11-27 08:00] VITALS: BP 127/90; PULSE 75; RESP 18; TEMP 36.8; O2SAT 97
[2023-11-27] MEDS: Gabapentin 400 MG CAPSULE 800 MG PO ×3 (08:44→22:00)
[2023-11-27 08:45] VITALS: BP 127/90
[2023-11-27] MEDS: Propranolol HCL 20 MG TABLET PO ×3 (08:45→22:02)
[2023-11-27] MEDS: levETIRAcetam 500 MG TABLET PO ×2 (08:45→22:01)
[2023-11-27] MEDS: busPIRone HCl 10 MG TABLET PO ×3 (08:45→22:02)
[2023-11-27] MEDS: clonazePAM 1 MG TABLET PO ×2 (08:45→22:01)
[2023-11-27] MEDS: Folic Acid 1 MG TABLET PO (08:45)
[2023-11-27] MEDS: Thiamine HCL 100 MG TABLET PO (08:45)
[2023-11-27] MEDS: Famotidine 20 MG TABLET PO ×2 (08:45→22:02)
[2023-11-27] MEDS: OLANZapine 7.5 MG TABLET PO ×2 (09:04→17:59)
[2023-11-27] MEDS: Ibuprofen 800 MG TABLET PO (09:04)
[2023-11-27] MEDS: Buprenorphine/Naloxone 8/2 mg FILM 1 FILM BUCCAL ×2 (09:04→22:00)
[2023-11-27] MEDS: Nicotine 21 MG PATCH.TD24 TRANSDERMA (09:29)
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
[2023-11-27 17:12] VITALS: BP 134/82
[2023-11-27 20:00] VITALS: BP 112/54; PULSE 75; RESP 18; TEMP 36.4; O2SAT 96
[2023-11-27] MEDS: Prazosin HCL 1 MG CAPSULE 2 MG PO (22:01)
[2023-11-27] MEDS: QUEtiapine Fumarate 400 MG TABLET PO (22:01)
[2023-11-28 08:00] VITALS: BP 115/69; PULSE 80; RESP 18; TEMP 37.2; O2SAT 94
[2023-11-28] MEDS: Famotidine 20 MG TABLET PO ×2 (09:14→21:26)
[2023-11-28] MEDS: levETIRAcetam 500 MG TABLET PO ×2 (09:14→21:26)
[2023-11-28] MEDS: Gabapentin 400 MG CAPSULE 800 MG PO ×3 (09:14→21:25)
[2023-11-28] MEDS: busPIRone HCl 10 MG TABLET PO ×3 (09:14→21:26)
[2023-11-28] MEDS: Propranolol HCL 20 MG TABLET PO ×3 (09:14→21:26)
[2023-11-28] MEDS: Folic Acid 1 MG TABLET PO (09:14)
[2023-11-28] MEDS: clonazePAM 1 MG TABLET PO ×2 (09:14→21:26)
[2023-11-28] MEDS: Thiamine HCL 100 MG TABLET PO (09:15)
[2023-11-28] MEDS: Fluticasone Propionate Nasal 16 GM SPRAY 1 SPRAY NOSTRIL-B ×2 (09:19→21:26)
[2023-11-28] MEDS: Buprenorphine/Naloxone 8/2 mg FILM 1 FILM BUCCAL ×3 (09:20→20:37)
[2023-11-28] MEDS: Nicotine 21 MG PATCH.TD24 TRANSDERMA (09:20)
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
[2023-11-28] MEDS: Loperamide HCl 2 MG CAPSULE 4 MG PO (12:24)
[2023-11-28 16:08] VITALS: BP 133/78; PULSE 77
[2023-11-28] MEDS: OLANZapine 7.5 MG TABLET PO ×2 (16:12→21:29)
[2023-11-28 20:00] VITALS: BP 116/62; PULSE 74; RESP 16; TEMP 36.6; O2SAT 93
[2023-11-28 21:25] VITALS: BP 116/62
[2023-11-28] MEDS: Prazosin HCL 1 MG CAPSULE 2 MG PO (21:25)
[2023-11-28 21:26] VITALS: BP 116/62
[2023-11-28] MEDS: QUEtiapine Fumarate 400 MG TABLET PO (21:26)
[2023-11-28] MEDS: Acetaminophen 325 MG TABLET 650 MG PO (21:31)
[2023-11-29 08:20] VITALS: BP 125/70; PULSE 73; RESP 16; TEMP 36.5; O2SAT 96
[2023-11-29] MEDS: Gabapentin 400 MG CAPSULE 800 MG PO ×3 (08:27→21:42)
[2023-11-29] MEDS: Buprenorphine/Naloxone 8/2 mg FILM 1 FILM BUCCAL ×3 (08:27→21:51)
[2023-11-29 08:28] VITALS: BP 125/70; PULSE 73
[2023-11-29] MEDS: levETIRAcetam 500 MG TABLET PO ×2 (08:28→21:43)
[2023-11-29] MEDS: Famotidine 20 MG TABLET PO ×2 (08:28→21:43)
[2023-11-29] MEDS: clonazePAM 1 MG TABLET PO ×2 (08:28→21:43)
[2023-11-29] MEDS: Propranolol HCL 20 MG TABLET PO ×3 (08:28→21:42)
[2023-11-29] MEDS: Thiamine HCL 100 MG TABLET PO (08:28)
[2023-11-29] MEDS: busPIRone HCl 10 MG TABLET PO ×3 (08:28→21:43)
[2023-11-29] MEDS: Folic Acid 1 MG TABLET PO (08:28)
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
[2023-11-29 14:22] VITALS: BP 125/64; PULSE 71
[2023-11-29] MEDS: Nicotine 21 MG PATCH.TD24 TRANSDERMA (14:22)
[2023-11-29] MEDS: OLANZapine 7.5 MG TABLET PO (14:22)
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
[2023-11-29 20:00] VITALS: BP 116/55; PULSE 79; RESP 20; TEMP 36.8; O2SAT 93
[2023-11-29] MEDS: QUEtiapine Fumarate 400 MG TABLET PO (21:42)
[2023-11-29] MEDS: Prazosin HCL 1 MG CAPSULE 2 MG PO (21:43)
[2023-11-30 08:00] VITALS: BP 121/62; PULSE 72; RESP 20; TEMP 36.5; O2SAT 99
[2023-11-30] MEDS: Naloxone HCl Nasal TAKE HOME 4 MG SPRAY 8 MG NOSTRILALT (08:10)
[2023-11-30 08:11] VITALS: BP 121/62; PULSE 72
[2023-11-30] MEDS: Propranolol HCL 20 MG TABLET PO (08:11)
[2023-11-30] MEDS: levETIRAcetam 500 MG TABLET PO (08:12)
[2023-11-30] MEDS: Gabapentin 400 MG CAPSULE 800 MG PO (08:12)
[2023-11-30] MEDS: Thiamine HCL 100 MG TABLET PO (08:13)
[2023-11-30] MEDS: Famotidine 20 MG TABLET PO (08:13)
[2023-11-30] MEDS: clonazePAM 1 MG TABLET PO (08:13)
[2023-11-30] MEDS: Folic Acid 1 MG TABLET PO (08:13)
[2023-11-30] MEDS: busPIRone HCl 10 MG TABLET PO (08:13)
[2023-11-30] MEDS: Fluticasone Propionate Nasal 16 GM SPRAY 1 SPRAY NOSTRIL-B (08:28)
[2023-11-30] MEDS: Buprenorphine/Naloxone 8/2 mg FILM 1 FILM BUCCAL (08:30)
== END 2023-11-30 09:50 | disposition home or self-care (01) | DRG 885 ==
LOC: HO.ED 23:44 → HO.PM5 11-15 13:07
PROVIDERS: Physician Assistant Medical; Admitting Provider Psychiatry & Neurology Psychiatry; Emergency Provider Emergency Medicine Emergency Medical Services; Visit Provider Psychiatry & Neurology Psychiatry
DX: F33.2 Major depressive disorder, recurrent severe without psychotic features (principal); R45.851 Suicidal ideations; F11.20 Opioid dependence, uncomplicated; Z59.02 Unsheltered homelessness; F10.139 Alcohol abuse with withdrawal, unspecified; M54.9 Dorsalgia, unspecified; G89.29 Other chronic pain; F14.10 Cocaine abuse, uncomplicated; F43.10 Post-traumatic stress disorder, unspecified; F17.210 Nicotine dependence, cigarettes, uncomplicated; Z71.6 Tobacco abuse counseling; Z91.148 Patient's other noncompliance with medication regimen for other reason; Z20.822 Contact with and (suspected) exposure to COVID-19; Z79.899 Other long term (current) drug therapy
CPT/HCPCS: 0241U; 36415; 72100; 80053; 80143; 80177; 80179; 80307; 81001; 84484; 85025; 85652; 93005; 99285; S9485

== ENCOUNTER → 2023-11-12 16:11 | Outpatient (BNV) | payer OTHER, MEDICARE, SELFPAY | PROVIDERS: Emergency Provider Emergency Medicine Emergency Medical Services; Visit Provider Internal Medicine | DX: R45.851 Suicidal ideations (principal) | CPT/HCPCS: 93010 ==

== ENCOUNTER → 2023-11-15 12:38 | Outpatient (BNV) | payer OTHER, SELFPAY | PROVIDERS: Admitting Provider Psychiatry & Neurology Psychiatry; Emergency Provider Emergency Medicine Emergency Medical Services; Visit Provider Internal Medicine | DX: M54.9 Dorsalgia, unspecified (principal) | CPT/HCPCS: 99222 ==

== ENCOUNTER → 2023-11-15 12:38 | Outpatient (BNV) | payer OTHER, SELFPAY | PROVIDERS: Admitting Provider Psychiatry & Neurology Psychiatry; Emergency Provider Emergency Medicine Emergency Medical Services; Visit Provider Psychiatry & Neurology Psychiatry | DX: F33.2 Major depressive disorder, recurrent severe without psychotic features (principal); F14.10 Cocaine abuse, uncomplicated; F43.11 Post-traumatic stress disorder, acute; F10.90 Alcohol use, unspecified, uncomplicated | CPT/HCPCS: 90792; 99231; 99232; 99239 ==